=== PATIENT | male | born 1945 | race Caucasian/White ===

== ENCOUNTER 2021-08-31 08:20 | Inpatient (IN) | payer MEDICARE, SELFPAY ==
[2021-08-31] VITALS (32 sets, daily range): BP systolic 102–134; BP diastolic 55–82; PULSE 63–90; RESP 12–20; TEMP 36.4–36.8; O2SAT 96–100; BMI 25.3
--- NOTE | ~2021-08-31 | US_ITS ---
US right upper quadrant DATE: 08/31/2021 08:59 INDICATION: Abdominal pain for 2 to 3 weeks, worse over the past 4-5 days TECHNIQUE: Real-time imaging of liver, pancreas, gallbladder areas COMPARISON: None FINDINGS: The pancreas is largely obscured by bowel gas. No hepatic space-occupying mass lesion is evident. Normal hepatopedal portal venous flow direction. The gallbladder is not visualized, presumably due to cholecystectomy. The common bile duct measures 6 .6 mm, within normal limits for 76-year-old patient presumably postcholecystectomy. IMPRESSION: Probable cholecystectomy Normal appearing liver The pancreas is secured by bowel gas Reviewed, dictated and finalized at [facility]. Reviewed, dictated and finalized at location [facility]. ICAL ALLERGIST
--- NOTE | ~2021-08-31 | MR_ITS ---
EXAMINATION: MR MRCP wo/w con/w 3D wo ind DATE: 08/31/2021 17:56 INDICATION: Right upper quadrant abdominal pain. TECHNIQUE: Magnetic resonance imaging (MRI) of the abdomen was performed without and with 16 mL Multi ramakrishna intravenous contrast. Sequences included coronal T2-weighted SS-FSE, coronal T2-weighted FS SS- FSE, coronal T2-weighted FS FIESTA, axial T2-weighted FS FIESTA, axial T2-weighted FIESTA, sagittal T 2-weighted SS-FSE, axial T1-weighted dual-echo FSPGR, axial T2-weighted SS-FSE, axial T1-weighted LAV A, axial T2-weighted STIR FSE. Thick-slab T2-weighted FRFSE-XL images were obtained for magnetic reso nance cholangiopancreatography (MRCP). Rotating maximum intensity projection 3-D reconstructions of t he volumetric data were created by the technologist. Postcontrast sequences included a time course of axial T1-weighted LAVA. COMPARISON: CT dated 08/31/2021 FINDINGS: ABDOMEN MRI: Again seen are masses in the posterior left lower lobe which are more clearly visualized on the prior CT and concerning for metastatic disease. Heart size is normal. No pericardial or pleural effusion. 10 mm homogeneously arterially enhancing lesion in the left hepatic lobe with persistent enhancement isointense to the aorta persisting on the five-minute images consistent with a flash filling hemangio ma. No other hepatic lesions identified. Gallbladder is not visualized and likely surgically absent. Mild splenomegaly measuring 14.2 cm craniocaudally. Pancreas, bilateral adrenal glands and kidneys ar e normal. Visualized portions of the bowels are unremarkable. No pathologically enlarged abdominal ly mphadenopathy. Mild lumbar dextrocurvature with severe lower lumbar spondylosis. Normal bone marrow s ignal throughout with no pathologic marrow replacing process. ABDOMEN MRCP: Mild intrahepatic biliary ductal dilation. There is more prominent dilation of the common bile duct m easuring up to 16 mm in diameter proximally tapering to 10 mm at the distal duct where there is a 7 x 6 mm low signal intensity gallstones. The main pancreatic duct is normal. IMPRESSION: 1. Choledocholithiasis with 7 x 6 mm gallstone at the distal aspect of the common bile duct and mild intrahepatic and moderate extra hepatic biliary ductal dilation. 2. Pulmonary masses in the left lower lobe concerning for metastatic disease. See separate chest CT r eport for further detail. Reviewed, dictated and finalized at location [facility]. MOMETER TUNER IMPRESSION: 1. Choledocholithiasis with 7 x 6 mm gallstone at the distal aspect of the comm on bile duct and mild intrahepatic and moderate extra hepatic biliary ductal di lation. 2. Pulmonary masses in the left lower lobe concerning for metastatic disease. S ee separate chest CT report for further detail.
--- NOTE | ~2021-08-31 | XR_ITS ---
EXAMINATION: XR ERCP DATE: 09/03/2021 14:41 INDICATION: Choledocholithiasis. TECHNIQUE: 10 spot fluoroscopic images of the right upper quadrant were obtained during endoscopic re trograde cholangiopancreatography (ERCP). Fluoroscopy exposure time was 191 seconds. COMPARISON: MRCP 08/31/2021 FINDINGS: The endoscope is in the second portion of the duodenum. There is contrast opacification of the biliary tree. There is intrahepatic and extrahepatic biliary duct dilatation. No visible choledoc holithiasis. IMPRESSION: 1. Intrahepatic and extrahepatic bile duct dilatation status post cholecystectomy. Please refer to e ERCP procedure note for additional details. Reviewed, dictated and finalized at location [facility]. CTOR BANKING IMPRESSION: 1. Intrahepatic and extrahepatic bile duct dilatation status post cholecystecto my. Please refer to the ERCP procedure note for additional details.
--- NOTE | ~2021-08-31 | CT_ITS ---
EXAMINATION: CT diagnostic chest wo con EXAM DATE: 08/31/2021 11:44 INDICATION: Lung masses. Abnormal abdomen pelvis CT. TECHNIQUE: Spiral CT of the chest without contrast. Axial, coronal and sagittal images of the chest were reviewed. Coronal maximum intensity pixel images of chest reviewed. The dose-length product ( DLP) for this examination was 198.58 mGy-cm. The exposure was tailored according to patient size (au to mA exposure control), and iterative reconstruction (ASIR) was used as additional dose reduction te chnique. Correlation is made to CT abdomen pelvis earlier same date. FINDINGS: 7 nodules identified at the lung bases as described, abdomen and pelvis CT largest in the left lower lobe measuring up to 2.4 cm. There are 5 other pulmonary nodules identified in the mid and upper lung zones which are not imaged on those exams, largest in the right upper lobe just above the minor fissure measuring 1 cm. There are scattered calcified lung granulomas. There is mild emphysema . No endobronchial nodules identified. Fluid density circumscribed region in the anterior mediastinum probably pericardial cyst. There are no pleural or pericardial effusions. Tracheobronchial tree i s patent. There is no mediastinal, hilar or axillary lymphadenopathy. There is no pneumothorax. Heart normal in size. There is moderate coronary arterial calcification, arterial sclerosis. Uppe r abdomen is unremarkable. There is mild to moderate thoracic spondylosis without osteoblastic or o steolytic lesions identified. IMPRESSION: 1. Approximately 12 noncalcified pulmonary nodules identified up to 2.4 cm, differential diagnosis i ncluding metastatic disease, infectious or postinfectious residua, cryptogenic organizing pneumonia, probably not septic emboli. Clinical correlation, consider PET/CT, one month follow-up CT scan. Large r left lower lobe nodule could be biopsied. 2. Scattered punctate lung granulomata, postinfectious residua. 3. Mild emphysema. Reviewed, dictated and finalized at location B. MOLD ENGRAVER IMPRESSION: 1. Approximately 12 noncalcified pulmonary nodules identified up to 2.4 cm, di fferential diagnosis including metastatic disease, infectious or postinfectious residua, cryptogenic organizing pneumonia, probably not septic emboli. Clinica l correlation, consider PET/CT, one month follow-up CT scan. Larger left lower lobe nodule could be biopsied. 2. Scattered punctate lung granulomata, postinfectious residua. 3. Mild emphysema.
--- NOTE | ~2021-08-31 | CT_ITS ---
EXAMINATION: CT abdomen pelvis w con EXAM DATE: 08/31/2021 10:08 INDICATION: RUQ pain TECHNIQUE: Spiral CT of the abdomen and pelvis was performed following intravenous injection of 100 m L Omnipaque 350. Axial, coronal and sagittal images of the abdomen and pelvis were reviewed. The do se-length product (DLP) for this examination was 464.27 mGy-cm. The exposure was tailored according to patient size (auto mA exposure control), and iterative reconstruction (ASIR) was used as additiona l dose reduction technique. There is no prior study for comparison. FINDINGS: There are 4 nodules identified in the left lower lobe, 2 in the right middle lobe and one i n the lingula, largest in the left lower lobe measuring 2.4 x 1.9 cm. There is an 8 mm hyperenhancin g lesion in the left liver lobe lateral segment, could be flash filling hemangioma but hypervascular metastasis not excludable. Spleen, pancreas, adrenal glands are unremarkable. Patient is status post cholecystectomy. There is moderate biliary dilation, common bile duct measuring 2 cm in diameter, mo derate intrahepatic biliary duct dilation. These could be from cholecystectomy, but if there is eleva licha bilirubin obstructing ampullary mass (ampulla of Vater) not be excludable. No pancreatic head mas s or common bile duct stone is specifically identified. Portal and splenic veins are patent. Kidneys enhance symmetrically. There is no hydronephrosis. P atient has likely had prostatectomy. The bladder is unremarkable. There is no retroperitoneal or p elvic lymphadenopathy. Small inguinal fat-containing hernias. There are no findings to suggest appendicitis. The stomach and small bowel are unremarkable. There is expected amount of colonic stool. No free intraperitoneal gas. There are no osteoblastic or os teolytic lesions identified. IMPRESSION: 1. Basilar pulmonary nodules up to 2.4 cm, suspicious for metastatic disease. Less likely considerat ions include multifocal pneumonia, septic emboli. Clinical correlation, consider chest CT. 2. Biliary dilation could be from cholecystectomy but if elevated bilirubin is present consider ERCP . 3. Subcentimeter left liver lobe lesion likely flash filling hemangioma. Less likely hypervascular m etastasis. 4. Small inguinal hernias. 5. No acute intra-abdominal findings. Reviewed, dictated and finalized at location [facility]. MACHINE KEY PERSON IMPRESSION: 1. Basilar pulmonary nodules up to 2.4 cm, suspicious for metastatic disease. Less likely considerations include multifocal pneumonia, septic emboli. Clinica l correlation, consider chest CT. 2. Biliary dilation could be from cholecystectomy but if elevated bilirubin is present consider ERCP. 3. Subcentimeter left liver lobe lesion likely flash filling hemangioma. Less likely hypervascular metastasis. 4. Small inguinal hernias. 5. No acute intra-abdominal findings.
[2021-08-31 08:44] LABS: Basophils Absolute Auto 0.1 K/mm3 (0.0-0.1); Basophils Percent Auto 0.3 % (0.2-1.2); Eosinophils Percent Auto 0.1 % (0-4.4); Hematocrit 37.2 % (42.0-52.0); Hemoglobin 12.5 g/dL (14.0-18.0); Immature Granulocyte Percent A 0.5 % (0-0.5); Lymphocytes Absolute Auto 0.73 K/mm3 (0.9-3.2); Lymphocytes Percent Auto 3.8 % (18.3-44.2); Mean Corpuscular HGB Conc 33.6 g/dl (32-36); Mean Corpuscular Hemoglobin 22.4 pg (26-34); Mean Corpuscular Volume 66.5 fl (80-100); Mean Platelet Volume 9.7 fl (7.4-10.4); Monocytes Absolute Auto 1.1 K/mm3 (0.1-0.6); Monocytes Percent Auto 5.6 % (2.6-8.5); Neutrophils Absolute Auto 17.3 K/mm3 (1.3-6.7); Neutrophils Percent Auto 89.7 % (45.5-73.1); Platelet Count Result 287 k/mm3 (150-375); Red Blood Count 5.59 M/mm3 (4.6-6.20); White Blood Count 19.3 K/mm3 (4.5-10.0)
[2021-08-31 08:59] LABS: Alanine Aminotransferase 391 U/L (4-50); Albumin Level 4.1 g/dL (3.5-5.1); Alkaline Phosphatase 498 U/L (38-126); Anion Gap 7 mmol/L (8-16); Aspartate Amino Transferase 274 U/L (17-59); Bilirubin,Total 2.4 mg/dL (0.2-1.3); Blood Urea Nitrogen 15 mg/dL (9-20); Calcium 9.3 mg/dL (8.4-10.2); Carbon Dioxide 26 mmol/L (22-30); Chloride 98 mmol/L (98-107); Estimated CRCL calculation 52 ml/min; Estimated Glomerular Filt Rate > 60; Glucose 137 mg/dL (65-110); Lipase 76 U/L (23-300); Potassium 4.3 mmol/L (3.4-5.0); Sodium 131 mmol/L (137-145)
[2021-08-31] MEDS: SODIUM CHLORIDE 0.9% IV 1,000 ML 999 ML IV CONT (09:03)
--- NOTE | 2021-08-31 10:40 | ED.GENADULT ---
HPI - General Adult General Chief complaint: Abdominal Pain Stated complaint: abd pain, dark urine Time Seen by Provider: 08/31/21 08:26 History of Present Illness HPI narrative: Patient is a 76-year-old male who presents the ER with abdominal pain. Ongoing over the last 5 days. Saw his PCP who ordered outpatient lab work. Patient had abnormal bilirubin and liver function test. He was referred here to get an ultrasound. Reports that he had a fever of 101 ?F. Cannot identify any aggravating or alleviating factors related to the pain. Reports some mild jaundice as well. He has had some dark urine. No dysuria or urinary frequency urgency. Has not been wanting to eat. Related Data Home Medications Medication Instructions Recorded Confirmed citalopram 40 mg PO DAILY 08/31/21 08/31/21 metoprolol succinate 100 mg PO DAILY 08/31/21 08/31/21 olmesartan-hydrochlorothiazide 1 tablet PO DAILY 08/31/21 08/31/21 omeprazole 20 mg PO DAILY 08/31/21 08/31/21 trazodone 50 mg PO HS PRN 08/31/21 08/31/21 Allergies Allergy/AdvReac Type Severity Reaction Status Date / Time No Known Allergies Allergy Mild Verified 08/31/21 09:42 Review of Systems Review of Systems: All systems reviewed & are unremarkable except as noted in HPI and below Constitutional: Constitutional: Denies chills, Reports fever(s) and Reports weakness Comments: Anorexia ENT: Denies nasal congestion and Denies sore throat Cardiovascular: Cardiovascular: Denies chest pain, Denies rapid heart rate and Denies radiating jaw, neck or arm pain Respiratory: Respiratory: Denies cough, Denies dyspnea and Denies wheezing Gastrointestinal: Gastrointestinal: Reports abdominal pain, Denies diarrhea, Reports nausea and Denies vomiting Musculoskeletal: Musculoskeletal: Denies back pain and Denies muscle cramps Neurologic: Denies syncope, Denies focal weakness and Denies numbness [facility] Past Medical History Medical History (Updated 08/31/21 @ 18:32 by Marc Meza MD) Dilated bile duct Elevated liver enzymes Leukocytosis Nausea and vomiting in adult Pulmonary nodule RUQ pain SIRS (systemic inflammatory response syndrome) Family History Family History (Updated 08/31/21 @ 18:02 by Domi Pepper RN) Other Unknown family medical history Social History Social History Smoking status: Never smoker Alcohol intake: never Substance use: never Substance use type: does not use Spiritual care concerns: No Exam Narrative: GENERAL: Well-appearing, well-nourished, and in no acute distress. HEAD: Normocephalic, atraumatic. EYES: PERRL and EOMI. mild scleral icterus. CHEST: Clear to auscultation. No respiratory distress. HEART: Regular rate and rhythm. Normal peripheral pulses. ABDOMEN: Soft, mild epigastric and right upper quadrant discomfort without guarding, nondistended, normal active bowel sounds. EXTREMITIES: Normal range of motion. No edema. SKIN: Warm, dry, no rash. Bronze skin. NEURO: Alert and oriented x3. PSYCH: Normal mood and affect. Course Course Emergency Course: Discussed case with GI as well as hospital service. Dr. Watson with GI would like the patient have an MRCP for further evaluation. Zosyn ordered for antibiotic coverage blood cultures obtained. Admit to hospitalist service. Patient made aware of abnormal findings and possibility of metastatic lesions in the chest. Vital Signs Vital signs: Vital Signs Temperature 98.2 F 08/31/21 08:26 Pulse Rate 90 08/31/21 08:26 Respiratory Rate 13 08/31/21 08:26 Blood Pressure 123/68 08/31/21 08:26 Pulse Oximetry 100 08/31/21 08:26 Temperature 98 F 08/31/21 08:32 Pulse Rate 66 08/31/21 13:38 Respiratory Rate 16 08/31/21 13:38 Blood Pressure 102/64 08/31/21 13:30 Pulse Oximetry 100 08/31/21 13:38 Medical Decision Making Vital Signs Vital Signs: Vital Signs Temperature 98.2 F 08/31/21 08:26 Pulse Rate 90 08/31/21 08
--- NOTE | 2021-08-31 11:08 | PC.NURSE ---
Pt was informed that he can not eat or drink at this time, he will have another test
--- NOTE | 2021-08-31 12:00 | PC.NURSE ---
Pt resting quietly informed pt he will be admitted, pt denies pain at this time
--- NOTE | 2021-08-31 12:50 | ADMGEN ---
This patient, Suman Neumann, was admitted to [facility] Surg Room 317-02 at 1250. Patient/family oriented to hospital policies and general routines including ID bracelet, bed and alarms, visiting hours, pain management, procedures, bathroom and other care routines, personal items, smoking policy, room service/diet, and visiting hours. Information on how to activate the Rapid Response Team has been discussed. Patient/Family are encouraged to report perceived risks to care and to ask questions if they do not understand what they are told or what they should do.
--- NOTE | 2021-08-31 13:15 | PC.NURSE ---
attempted to call report to 3med/surg, RN stated charge nurse will call back room has not been assigned yet
[2021-08-31] MEDS: SODIUM CHLORIDE 0.9% IV 1,000 ML 125 ML IV CONT (16:13)
--- NOTE | 2021-08-31 16:55 | WPDGICN ---
Assessment and Plan Assessment and plan (1) Elevated liver enzymes: Code(s): R74.8 - Abnormal levels of other serum enzymes Status: Acute Assessment and Plan: here with fever, upper abdominal pain and elevated liver enzymes ct scan noted dilated bile duct, will get MRCP to assess biliary system- ddx includes stone, stricture, mass (also noted lung nodules with possibility of mets- will need further work up) started on antibiotics because possible cholangitis, awaiting on mrcp and blood cultures will trend liver enzymes, check hepatitis panel no etoh use (2) SIRS (systemic inflammatory response syndrome): Code(s): R65.10 - Systemic inflammatory response syndrome (SIRS) of non-infectious origin without acute organ dysfunction Status: Acute Assessment and Plan: on antibiotics (3) Leukocytosis: Code(s): D72.829 - Elevated white blood cell count, unspecified Status: Acute (4) RUQ pain: Code(s): R10.11 - Right upper quadrant pain Status: Acute Assessment and Plan: similar to previous GB pain (5) Dilated bile duct: Code(s): K83.8 - Other specified diseases of biliary tract Status: Acute Assessment and Plan: mrcp, based on findings may need ercp (6) Nausea and vomiting in adult: Code(s): R11.2 - Nausea with vomiting, unspecified Status: Acute (7) Pulmonary nodule: Code(s): R91.1 - Solitary pulmonary nodule Status: Acute Assessment and Plan: work up by primary he smoked briefly and quit many years ago GI Consult Note Consult date/time: 08/31/21 16:55 Reason for consult: elevated liver enzymes, abnormal bile duct and ruq pain HPI: Suman Neumann is a 76 year old male with history of cholecystectomy more than 10 years ago who came here with progressive abdominal discomfort for almost 2-3 weeks mostly in upper abdomen with radiation to his back but last week worsening pain in fact he went to see his doctor because similar when he used to have GB attack and he ordered MRI as outpatient. Also he started with nausea and vomiting and noted dark urine last few days. Yesterday had chills and fever up to 101 F. He came here because abdominal pain. Blood work showed elevated liver enzymes with transaminases 200-300's, bili 2.4, wbc 19k. CT scan reviewed and showed dilated bile duct, basilar pulmonary nodules up to 2.4 cm, suspicious for metastatic disease. Less likely considerations include multifocal pneumonia, septic emboli. Also possible liver hemangioma. He says that pain now is gone after medical treatment and already feeling better. Denies alcohol abuse, no previous pancreatitis or liver disease, no hepatitis. Started on antibiotics and blood culture pending. Review of Systems Constitutional: Constitutional: Reports chills Eyes: Eyes: Denies blurry vision ENT: Reports Normal hearing present Cardiovascular: Cardiovascular: Denies chest pain Respiratory: Respiratory: Denies dyspnea Gastrointestinal: Gastrointestinal: Reports abdominal pain, Reports nausea and Reports vomiting Genitourinary: Comments: dark urine Musculoskeletal: Musculoskeletal: Denies arthralgias Integumentary/Breasts: Skin/Breast: Denies dry skin Neurologic: Denies headache(s) Psychiatric: Psychiatric: Reports no additional psychiatric complaints [facility] Past Medical History Medical History (Updated 08/31/21 @ 17:02 by Andriy Ashton MD) Dilated bile duct Elevated liver enzymes Leukocytosis Nausea and vomiting in adult Pulmonary nodule RUQ pain SIRS (systemic inflammatory response syndrome) Social History Social History Smoking status: Never smoker Alcohol intake: never Substance use: never Substance use type: does not use Spiritual care concerns: No Meds Home Medications and Allergies Allergies Allergy/AdvReac Type Severity Reaction Status Date / Time No Known Allergies Allergy Mild Verified 1
--- NOTE | 2021-08-31 21:09 | PM.IMHP ---
H&P: HPI History of Present Illness Date/Time: 08/31/21 21:09 this is a 76-year-old male patient who has a history of hypertension. He also had a history of having prostate cancer with a prostatectomy in the past. The patient tells me that he has been having some right upper quadrant discomfort for at least a week now. He said he only vomit 1 time Within the last 3 weeks. The patient stated that he did take some Tylenol but was concerned that this would not be healthy for him so he stopped taking the Tylenol. The patient stated he would have increased pain whenever he ate. So he would decrease his intake so he would not have as much pain. If he did need as much he would have his much pain. The patient has had history of cholecystectomy in the past. The patient does also take omeprazole at home. Patient also had a fever of 101. The patient stated that he has lost 8 lb in the last 3 weeks. The patient has no previous history of any lung nodules on any previous chest x-rays. CT of the abdomen was read as 1. Basilar pulmonary nodules up to 2.4 cm, suspicious for metastatic disease. Less likely considerations include multifocal pneumonia, septic emboli. Clinical correlation, consider chest CT. 2. Biliary dilation could be from cholecystectomy but if elevated bilirubin is present consider ERCP. 3. Subcentimeter left liver lobe lesion likely flash filling hemangioma. Less likely hypervascular metastasis. 4. Small inguinal hernias. 1. Approximately 12 noncalcified pulmonary nodules identified up to 2.4 cm, differential diagnosis including metastatic disease, infectious or postinfectious residua, cryptogenic organizing pneumonia, probably not septic emboli. Clinical correlation, consider PET/CT, one month follow-up CT scan. Larger left lower lobe nodule could be biopsied. 2. Scattered punctate lung granulomata, postinfectious residua. 3. Mild emphysema GI has been consulted. An MRCP has been ordered. His MRCP was read as the following. Choledocholithiasis with 7 x 6 mm gallstone at the distal aspect of the common bile duct and mild intrahepatic and moderate extra hepatic biliary ductal dilation. 2. Pulmonary masses in the left lower lobe concerning for metastatic disease. See separate chest CT report for further detail. I discussed these results with the patient and he stated that he would like to discuss the results with his daughter before a made any decisions. His white count is 19.3. The patient was started on IV fluids and Zosyn. All the liver enzymes are elevated. The patient appears to be jaundice. However the patient stated that this is his normal color. The patient is being admitted to observation status on 08/31/2021. Chief Complaint: abd pain Review of Systems Review of Systems: All systems reviewed & are unremarkable except as noted in HPI and below Constitutional: Constitutional: Reports as per HPI and Reports no additional constitutional complaints Eyes: Eyes: Reports as per HPI and Reports no additional eye complaints ENT: Reports system reviewed and no additional complaints, except as documented and Reports Normal hearing present Cardiovascular: Cardiovascular: Reports no additional cardiovascular complaints Respiratory: Respiratory: Reports no additional respiratory complaints and Reports no additional respiratory complaints Gastrointestinal: Gastrointestinal: Reports as per HPI and Reports no additional gastrointestinal complaints Musculoskeletal: Musculoskeletal: Reports no additional musculoskeletal complaints Integumentary/Breasts: Skin/Breast: Reports system reviewed and no additional complaints, except as docu and Reports as per HPI Neurologic: Reports system reviewed and no additional complaints, except as documented, Reports as per HPI and Reports Normal hearing present Psychiatric: Psychiatric: Reports no additional psychiatric complaints and Reports as per HPI Endocrine: Endocrine: Reports no additional en
[2021-08-31] MEDS: traZODone HCL 50 MG TABLET PO (23:05)
[2021-09-01] VITALS (7 sets, daily range): BP systolic 103–145; BP diastolic 50–71; PULSE 56–72; RESP 18–20; TEMP 36.3–36.9; O2SAT 96–100
[2021-09-01] MEDS: SODIUM CHLORIDE 0.9% IV 1,000 ML 125 ML IV CONT ×2 (03:08→14:18)
[2021-09-01 08:09] LABS: Alanine Aminotransferase 259 U/L (4-50); Albumin Level 3.3 g/dL (3.5-5.1); Alkaline Phosphatase 357 U/L (38-126); Anion Gap 6 mmol/L (8-16); Aspartate Amino Transferase 142 U/L (17-59); Blood Urea Nitrogen 15 mg/dL (9-20); CRP 8.2 mg/dL (<1.0); Calcium 8.5 mg/dL (8.4-10.2); Carbon Dioxide 24 mmol/L (22-30); Chloride 103 mmol/L (98-107); Creatine Kinase 21 U/L (55-170); Estimated CRCL calculation 71 ml/min; Estimated Glomerular Filt Rate > 60; Glucose 108 mg/dL (65-110); Lactate Dehydrogenase 269 U/L (313-618); Lipase 98 U/L (23-300); Magnesium 1.9 mg/dL (1.6-2.3); Potassium 3.6 mmol/L (3.4-5.0); Sodium 133 mmol/L (137-145)
[2021-09-01 08:10] LABS: Lactic Acid Reflex 0.8 mmol/L (0.7-2.1)
[2021-09-01 08:21] LABS: Hematocrit 29.3 % (42.0-52.0); Hemoglobin 9.9 g/dL (14.0-18.0); Mean Corpuscular HGB Conc 33.8 g/dl (32-36); Mean Corpuscular Hemoglobin 22.3 pg (26-34); Mean Corpuscular Volume 66.1 fl (80-100); Mean Platelet Volume 10.9 fl (7.4-10.4); Platelet Count Result 251 k/mm3 (150-375); Red Blood Count 4.43 M/mm3 (4.6-6.20); Red Cell Distribution Width 15.2 % (11.5-14.5); White Blood Count 7.4 K/mm3 (4.5-10.0)
[2021-09-01] MEDS: METOPROLOL SUCCINATE EXT REL 100 MG TABCR PO (09:00)
[2021-09-01] MEDS: PANTOPRAZOLE SODIUM IV 40 MG VIAL IV PUSH ×2 (09:01→21:02)
[2021-09-01] MEDS: CITALOPRAM HYDROBROMIDE 20 MG TABLET 40 MG PO (09:01)
[2021-09-01 09:12] LABS: Hepatitis B Surface Antigen Negative (Negative)
[2021-09-01 09:18] LABS: HAV RESULT Negative (Negative); Hepatitis B Core IgM Result Negative (Negative)
[2021-09-01 09:30] LABS: Hepatitis C Virus Antibody Negative (Negative)
--- NOTE | 2021-09-01 10:03 | WPDGIPROGNO ---
Progress Note: A&P Assessment and Plan (1) Choledocholithiasis: Code(s): K80.50 - Calculus of bile duct without cholangitis or cholecystitis without obstruction Status: Acute Assessment and Plan: Patient presented with fever and elevated LFTs. History of cholecystectomy some years ago. MRCP performed yesterday confirms common bile duct gallstones. This likely accounts for inflammatory response, possible cholangitis. Symptoms are improving with IV antibiotics. White count has decreased. Liver tests down slightly. Plan for ERCP on Friday. Under direction of Dr. Watson. Will continue antibiotics until that is accomplished. Anticoagulation should be held. (2) SIRS (systemic inflammatory response syndrome): Code(s): R65.10 - Systemic inflammatory response syndrome (SIRS) of non-infectious origin without acute organ dysfunction Status: Acute (3) Lung mass: Code(s): R91.8 - Other nonspecific abnormal finding of lung field Status: Acute Assessment and Plan: Patient has lung masses suspicious for metastatic disease. Likely will need biopsy. To exclude metastases. Subjective Date/time seen: 09/01/21 10:03 Patient alert comfortable this morning. States abdominal pain has improved. Tolerating diet. Review of Systems Review of Systems: All systems reviewed & are unremarkable except as noted in HPI and below Exam Narrative: Physical exam patient is alert comfortable at rest. Currently afebrile. HEENT exam reveals no icterus. Lungs are clear. Heart without murmur. Abdomen soft and nontender. No organomegaly evident. Objective Data Vital Signs Vital Signs: Vital Signs - 24 hr 08/31/21 10:14 08/31/21 10:15 08/31/21 10:30 Temperature Pulse Rate 81 81 67 Respiratory Rate 16 13 16 Blood Pressure Pulse Oximetry 100 100 99 08/31/21 10:45 08/31/21 10:59 08/31/21 11:00 Temperature Pulse Rate 76 77 77 Respiratory Rate 13 17 12 Blood Pressure 124/69 Pulse Oximetry 100 100 100 08/31/21 11:02 08/31/21 11:03 08/31/21 11:15 Temperature Pulse Rate 70 70 72 Respiratory Rate 12 16 16 Blood Pressure 120/72 Pulse Oximetry 100 100 100 08/31/21 11:23 08/31/21 11:30 08/31/21 11:32 Temperature Pulse Rate 72 66 69 Respiratory Rate 13 15 17 Blood Pressure 111/62 107/65 Pulse Oximetry 100 99 99 08/31/21 11:49 08/31/21 12:02 08/31/21 12:15 Temperature Pulse Rate 68 67 66 Respiratory Rate 13 14 17 Blood Pressure Pulse Oximetry 100 99 98 08/31/21 12:39 08/31/21 12:43 08/31/21 12:45 Temperature Pulse Rate 68 67 66 Respiratory Rate 14 14 14 Blood Pressure 104/68 103/63 Pulse Oximetry 100 99 99 08/31/21 12:46 08/31/21 13:09 08/31/21 13:15 Temperature Pulse Rate 68 63 64 Respiratory Rate 14 15 15 Blood Pressure Pulse Oximetry 99 98 96 08/31/21 13:30 08/31/21 13:38 08/31/21 14:00 Temperature 98.0 F Pulse Rate 64 66 67 Respiratory Rate 15 16 20 Blood Pressure 102/64 105/55 L Pulse Oximetry 96 100 100 08/31/21 18:31 08/31/21 20:00 08/31/21 23:54 Temperature 98.0 F 97.6 F Pulse Rate 67 80 Respiratory Rate 16 18 Blood Pressure 123/60 134/82 Pulse Oximetry 99 97 96 09/01/21 00:00 09/01/21 04:00 09/01/21 08:00 Temperature 98.0 F 97.3 F L 97.3 F L Pulse Rate 56 L 58 L 63 Respiratory Rate 18 18 18 Blood Pressure 103/58 L 110/62 124/63 Pulse Oximetry 97 99 96 09/01/21 09:00 Temperature Pulse Rate 64 Respiratory Rate Blood Pressure Pulse Oximetry Intake/Output Intake/Output: Intake & Output 08/29/21 08/30/21 08/31/21 09/01/21 23:59 23:59 23:59 23:59 Intake Total 1150 2350 Output Total 300 Balance 1150 2050 Meds/Results Medications: Active Medications Generic Name Dose Route Start Last Admin Trade Name Josh PRN Reason Stop Dose Admin Citalopram Hydrobromide 40 mg 09/01/21 09:00 09/01/21 09:01 Citalopram Hydrobromide 20 Mg Tablet PO 40 mg DAILY
--- NOTE | 2021-09-01 13:25 | PM.IMPN ---
Progress Note: A&P Assessment and Plan (1) Choledocholithiasis: Code(s): K80.50 - Calculus of bile duct without cholangitis or cholecystitis without obstruction Status: Acute Assessment and Plan: GI has been consulted. The patient did have an MRCP. continue to monitor LFTS. ERCP ordered for FRIDAY. (2) Hypertension: Code(s): I10 - Essential (primary) hypertension Status: Chronic Assessment and Plan: Continue with metoprolol and home medications. (3) Pulmonary nodule: Code(s): R91.1 - Solitary pulmonary nodule Status: Acute Assessment and Plan: I gave the patient a choice of repeating a CT in 3 months or getting an outpatient PET scan or having the largest nodule biopsied while he is here. We need to address this after ERCP. (4) Dilated bile duct: Code(s): K83.8 - Other specified diseases of biliary tract Status: Acute Assessment and Plan: GI has consulted the patient. (5) Elevated liver enzymes: Code(s): R74.8 - Abnormal levels of other serum enzymes Status: Acute Assessment and Plan: GI has been consulted. Could be related to the choledocholithiasis. (6) SIRS (systemic inflammatory response syndrome): Code(s): R65.10 - Systemic inflammatory response syndrome (SIRS) of non-infectious origin without acute organ dysfunction Status: Acute Assessment and Plan: Blood cultures is awaiting. The patient was started on Zosyn. Subjective Date/time seen: 09/01/21 13:25 Interval history: 76-year-old male patient who has a history of hypertension. He also had a history of having prostate cancer with a prostatectomy in the past. The patient tells me that he has been having some right upper quadrant discomfort for at least a week now. MRCP was read as the following. Choledocholithiasis with 7 x 6 mm gallstone at the distal aspect of the common bile duct and mild intrahepatic and moderate extra hepatic biliary ductal dilation. 2. Pulmonary masses in the left lower lobe concerning for metastatic disease. Pt is due to have ERCP on Friday. Review of Systems Review of Systems: All systems reviewed & are unremarkable except as noted in HPI and below Exam Const: General: other (Pt looks jaundiced ) Orientation/consciousness: oriented to person HENMT: Head: normal to inspection Resp: Effort & Inspection: no respiratory distress Auscultation: no rhonchi and no wheezes Cardio: Rate: regular rate Rhythm: regular rhythm GI: Inspection: normal to inspection GI Palp: No abdominal tenderness, No Guarding due to palpation present (GI) and No Hepatomegaly present Auscultation: normal bowel sounds Neuro: General: oriented to person Objective Data Vital Signs Vital Signs: Vital Signs - 24 hr 08/31/21 13:30 08/31/21 13:38 08/31/21 14:00 Temperature 36.7 C Pulse Rate 64 66 67 Respiratory Rate 15 16 20 Blood Pressure 102/64 105/55 L Pulse Oximetry 96 100 100 08/31/21 18:31 08/31/21 20:00 08/31/21 23:54 Temperature 36.7 C 36.4 C Pulse Rate 67 80 Respiratory Rate 16 18 Blood Pressure 123/60 134/82 Pulse Oximetry 99 97 96 09/01/21 00:00 09/01/21 04:00 09/01/21 08:00 Temperature 36.7 C 36.3 C L 36.3 C L Pulse Rate 56 L 58 L 63 Respiratory Rate 18 18 18 Blood Pressure 103/58 L 110/62 124/63 Pulse Oximetry 97 99 96 09/01/21 09:00 Temperature Pulse Rate 64 Respiratory Rate Blood Pressure Pulse Oximetry Intake/Output Intake/Output: Intake & Output 08/29/21 08/30/21 08/31/21 09/01/21 23:59 23:59 23:59 23:59 Intake Total 1150 2350 Output Total 300 Balance 1150 2050 Meds/Results Medications: Active Medications Generic Name Dose Route Start Last Admin Trade Name Constantinq PRN Reason Stop Dose Admin Citalopram Hydrobromide 40 mg 09/01/21 09:00 09/01/21 09:01 Citalopram Hydrobromide 20 Mg Tablet PO 40 mg DAILY COLEEN Administration Piperacillin/Tazob
[2021-09-01] MEDS: traZODone HCL 50 MG TABLET PO (23:55)
[2021-09-02] MEDS: SODIUM CHLORIDE 0.9% IV 1,000 ML 125 ML IV CONT (01:43)
[2021-09-02 05:54] VITALS: BP 155/66; PULSE 51; RESP 18; TEMP 36.3; O2SAT 99
[2021-09-02 06:54] LABS: Hematocrit 28.8 % (42.0-52.0); Hemoglobin 9.5 g/dL (14.0-18.0); Mean Corpuscular Hemoglobin 22.5 pg (26-34); Mean Corpuscular Volume 68.1 fl (80-100); Mean Platelet Volume 10.8 fl (7.4-10.4); Platelet Count Result 246 k/mm3 (150-375); Red Blood Count 4.23 M/mm3 (4.6-6.20); Red Cell Distribution Width 15.5 % (11.5-14.5); White Blood Count 6.2 K/mm3 (4.5-10.0)
[2021-09-02 07:20] LABS: Anion Gap 3 mmol/L (8-16); Blood Urea Nitrogen 9 mg/dL (9-20); Calcium 8.4 mg/dL (8.4-10.2); Carbon Dioxide 26 mmol/L (22-30); Chloride 107 mmol/L (98-107); Estimated CRCL calculation 71 ml/min; Estimated Glomerular Filt Rate > 60; Glucose 93 mg/dL (65-110); Potassium 3.9 mmol/L (3.4-5.0); Sodium 136 mmol/L (137-145)
--- NOTE | 2021-09-02 09:05 | WPDGIPROGNO ---
Progress Note: A&P Assessment and Plan (1) Choledocholithiasis: Code(s): K80.50 - Calculus of bile duct without cholangitis or cholecystitis without obstruction Status: Acute Assessment and Plan: Patient with history of cholecystectomy. However MRCP appears to confirm common bile duct gallstones. Likely these are newly formed over the many years since his cholecystectomy. ERCP and common duct stone extraction anticipated tomorrow by Dr. Watson. Continue antibiotics in the interim. NPO after midnight. (2) Lung mass: Code(s): R91.8 - Other nonspecific abnormal finding of lung field Status: Acute Assessment and Plan: Lung mass is evident on scanning suggestive of metastatic disease. Follow-up lung biopsy and probably pulmonary evaluation anticipated. (3) Anemia: Code(s): D64.9 - Anemia, unspecified Status: Acute Assessment and Plan: Patient with microcytic anemia. Continue monitor conservatively. Suspect this is related to his infection at the time admission. Subjective Date/time seen: 09/02/21 09:05 Patient alert and comfortable this morning. Tolerating diet. No abdominal pain today. Review of Systems Review of Systems: All systems reviewed & are unremarkable except as noted in HPI and below Exam Narrative: Patient alert and comfortable. Vital signs stable. HEENT exam reveals no icterus. Lungs are clear. Heart without murmur. Abdomen is soft nontender with no organomegaly. Objective Data Vital Signs Vital Signs: Vital Signs - 24 hr 09/01/21 14:00 09/01/21 20:00 09/01/21 22:00 Temperature 97.6 F 98.4 F 98.4 F Pulse Rate 56 L 72 72 Respiratory Rate 20 18 18 Blood Pressure 145/71 H 133/50 L 133/50 L Pulse Oximetry 100 99 99 09/02/21 05:54 Temperature 97.3 F L Pulse Rate 51 L Respiratory Rate 18 Blood Pressure 155/66 H Pulse Oximetry 99 Intake/Output Intake/Output: Intake & Output 08/30/21 08/31/21 09/01/21 09/02/21 23:59 23:59 23:59 23:59 Intake Total 1150 6450 800 Output Total 300 Balance 1150 6150 800 Meds/Results Medications: Active Medications Generic Name Dose Route Start Last Admin Trade Name Freq PRN Reason Stop Dose Admin Citalopram Hydrobromide 40 mg 09/01/21 09:00 09/01/21 09:01 Citalopram Hydrobromide 20 Mg Tablet PO 40 mg DAILY COLEEN Administration Piperacillin/Tazobactam/Dextrose 3.375 gm in 50 mls @ 100 mls/hr 08/31/21 18:00 09/02/21 06:56 Zosyn 3.375 Gm/D5w 50ml Pm IVPB 100 mls/hr Q6HR COLEEN Administration Sodium Chloride 1,000 mls @ 75 mls/hr 08/31/21 11:30 09/02/21 08:56 Normal Saline Iv IV CONT 75 mls/hr .[id number] COLEEN Infusion Metoprolol Succinate 100 mg 09/01/21 09:00 09/01/21 09:00 Metoprolol Succinate Ext Rel 100 Mg Tabcr PO 100 mg DAILY COLEEN Administration Morphine Sulfate 4 mg 08/31/21 11:29 Morphine Sulfate (*Crx) 4 Mg/Ml Inj IV PUSH Q2H PRN Pain Rated 7-10 Ondansetron HCl 4 mg 08/31/21 11:29 Ondansetron Inj 4 Mg/2 Ml Vial IV PUSH Q4H PRN Nausea Pantoprazole Sodium 40 mg 09/01/21 09:00 09/01/21 21:02 Pantoprazole Sodium Iv 40 Mg Vial IV PUSH 40 mg Q12HR COLEEN Administration Trazodone HCl 50 mg 08/31/21 21:44 09/01/21 23:55 Trazodone Hcl 50 Mg Tablet PO 50 mg HS PRN Administration Insomnia Radiology Results: ITS Impressions Upper Quadrant Ultrasound 08/31/21 09:02 IMPRESSION: Probable cholecystectomy Normal appearing liver The pancreas is secured by bowel gas Abdomen/Pelvis CT 08/31/21 10:19 IMPRESSION: 1. Basilar pulmonary nodules up to 2.4 cm, suspicious for metastatic disease. Less likely considerations include multifocal pneumonia, septic emboli. Clinical correlation, consider chest CT. 2. Biliary dilation could be from cholecystectomy but if elevated bilirubin is present consider ERCP. 3. Subcentimeter left liver lobe lesion likely flash filling hemangioma. Less likel
[2021-09-02 09:36] VITALS: PULSE 60
[2021-09-02] MEDS: CITALOPRAM HYDROBROMIDE 20 MG TABLET 40 MG PO (09:36)
[2021-09-02] MEDS: METOPROLOL SUCCINATE EXT REL 100 MG TABCR PO (09:36)
[2021-09-02] MEDS: PANTOPRAZOLE SODIUM IV 40 MG VIAL IV PUSH ×2 (09:36→21:49)
[2021-09-02 10:03] LABS: Iron 58 ug/dL (49-181)
[2021-09-02 10:12] LABS: Percent Iron Saturation 27 % (20-50)
[2021-09-02 14:00] VITALS: BP 117/62; PULSE 54; RESP 14; TEMP 36.5; O2SAT 100
--- NOTE | 2021-09-02 14:35 | PM.IMPN ---
Progress Note: A&P Assessment and Plan (1) Choledocholithiasis: Code(s): K80.50 - Calculus of bile duct without cholangitis or cholecystitis without obstruction Status: Acute Assessment and Plan: GI has been consulted. The patient did have an MRCP. continue to monitor LFTS. ERCP ordered for FRIDAY. Pt started on low fat diet, pt to be NPO from [place]. (2) Hypertension: Code(s): I10 - Essential (primary) hypertension Status: Chronic Assessment and Plan: Continue with metoprolol and home medications. (3) Pulmonary nodule: Code(s): R91.1 - Solitary pulmonary nodule Status: Acute Assessment and Plan: I gave the patient a choice of repeating a CT in 3 months or getting an outpatient PET scan or having the largest nodule biopsied while he is here. We need to address this after ERCP. (4) Dilated bile duct: Code(s): K83.8 - Other specified diseases of biliary tract Status: Acute Assessment and Plan: GI has consulted the patient. (5) Elevated liver enzymes: Code(s): R74.8 - Abnormal levels of other serum enzymes Status: Acute Assessment and Plan: GI has been consulted. Could be related to the choledocholithiasis. (6) SIRS (systemic inflammatory response syndrome): Code(s): R65.10 - Systemic inflammatory response syndrome (SIRS) of non-infectious origin without acute organ dysfunction Status: Acute Assessment and Plan: Blood cultures is awaiting. The patient was started on Zosyn. Subjective Date/time seen: 09/02/21 14:35 Interval history: 76-year-old male patient who has a history of hypertension. He also had a history of having prostate cancer with a prostatectomy in the past. The patient tells me that he has been having some right upper quadrant discomfort for at least a week now. MRCP was read as the following. Choledocholithiasis with 7 x 6 mm gallstone at the distal aspect of the common bile duct and mild intrahepatic and moderate extra hepatic biliary ductal dilation. 2. Pulmonary masses in the left lower lobe concerning for metastatic disease. Pt is awaiting ERCP on Friday. Review of Systems Review of Systems: All systems reviewed & are unremarkable except as noted in HPI and below Exam Const: General: other (Pt looks jaundiced ) Orientation/consciousness: oriented to person HENMT: Head: normal to inspection Resp: Effort & Inspection: no respiratory distress Auscultation: no rhonchi and no wheezes Cardio: Rate: regular rate Rhythm: regular rhythm GI: Inspection: normal to inspection GI Palp: No abdominal tenderness, No Guarding due to palpation present (GI) and No Hepatomegaly present Auscultation: normal bowel sounds Neuro: General: oriented to person Objective Data Vital Signs Vital Signs: Vital Signs - 24 hr 09/01/21 20:00 09/01/21 22:00 09/02/21 05:54 Temperature 36.9 C 36.9 C 36.3 C L Pulse Rate 72 72 51 L Respiratory Rate Blood Pressure 133/50 L 133/50 L 155/66 H Pulse Oximetry 99 99 99 09/02/21 09:36 Temperature Pulse Rate 60 Respiratory Rate Blood Pressure Pulse Oximetry Intake/Output Intake/Output: Intake & Output 08/30/21 08/31/21 09/01/21 09/02/21 23:59 23:59 23:59 23:59 Intake Total 1150 6450 1330 Output Total 300 Balance 1150 6150 1330 Meds/Results Medications: Active Medications Generic Name Dose Route Start Last Admin Trade Name Freq PRN Reason Stop Dose Admin Citalopram Hydrobromide 40 mg 09/01/21 09:00 09/02/21 09:36 Citalopram Hydrobromide 20 Mg Tablet PO 40 mg DAILY COLEEN Administration Piperacillin/Tazobactam/Dextrose 3.375 gm in 50 mls @ 100 mls/hr 08/31/21 18:00 09/02/21 12:51 Zosyn 3.375 Gm/D5w 50ml Pm IVPB 100 mls/hr Q6HR COLEEN Administration Sodium Chloride 1,000 mls @ 75 mls/hr 08/31/21 11:30 09/02/21 08:56 Normal Saline Iv IV CONT 75 mls/hr .[id number] COLEEN Infusion Metopr
[2021-09-02] MEDS: SODIUM CHLORIDE 0.9% IV 1,000 ML 75 ML IV CONT (17:12)
[2021-09-02 20:00] VITALS: PULSE 54; RESP 14; O2SAT 100
[2021-09-02] MEDS: traZODone HCL 50 MG TABLET PO (21:49)
[2021-09-02 22:00] VITALS: BP 144/69; PULSE 57; RESP 18; TEMP 36.4; O2SAT 100
[2021-09-03] VITALS (13 sets, daily range): BP systolic 136–170; BP diastolic 74–91; PULSE 55–78; RESP 13–32; TEMP 36.5–36.9; O2SAT 96–100
[2021-09-03] MEDS: ONDANSETRON INJ 4 MG/2 ML VIAL IV PUSH ×2 (07:38→16:04)
[2021-09-03 08:29] LABS: Hematocrit 28.1 % (42.0-52.0); Hemoglobin 9.5 g/dL (14.0-18.0); Mean Corpuscular HGB Conc 33.8 g/dl (32-36); Mean Corpuscular Hemoglobin 22.4 pg (26-34); Mean Corpuscular Volume 66.1 fl (80-100); Mean Platelet Volume 10.2 fl (7.4-10.4); Platelet Count Result 260 k/mm3 (150-375); Red Blood Count 4.25 M/mm3 (4.6-6.20); Red Cell Distribution Width 14.9 % (11.5-14.5); White Blood Count 4.8 K/mm3 (4.5-10.0)
[2021-09-03 08:43] LABS: Alanine Aminotransferase 141 U/L (4-50); Albumin Level 2.9 g/dL (3.5-5.1); Alkaline Phosphatase 321 U/L (38-126); Anion Gap 2 mmol/L (8-16); Aspartate Amino Transferase 69 U/L (17-59); Bilirubin,Total 1.5 mg/dL (0.2-1.3); Blood Urea Nitrogen 8 mg/dL (9-20); Calcium 8.4 mg/dL (8.4-10.2); Carbon Dioxide 27 mmol/L (22-30); Chloride 106 mmol/L (98-107); Estimated CRCL calculation 71 ml/min; Estimated Glomerular Filt Rate > 60; Glucose 96 mg/dL (65-110); Potassium 3.8 mmol/L (3.4-5.0); Sodium 135 mmol/L (137-145)
[2021-09-03] MEDS: METOPROLOL SUCCINATE EXT REL 100 MG TABCR PO (08:47)
[2021-09-03] MEDS: PANTOPRAZOLE SODIUM IV 40 MG VIAL IV PUSH ×2 (08:47→22:29)
[2021-09-03] MEDS: CITALOPRAM HYDROBROMIDE 20 MG TABLET 40 MG PO (08:47)
--- NOTE | 2021-09-03 09:58 | WPDANESEPPF ---
Anes - Initial Pre Proc Eval Procedure: Operation Date: 09/03/21 14:00 Proposed Procedures p Endoscopic Retro Cholangiopancreatogram - Andriy Ashton MD <Juan José Carlson MD - Last Filed: 09/04/21 07:14> Date/Time: 09/03/21 09:58 <Juan José Carlson MD - Last Filed: 09/04/21 07:14> Surgeon: Joseline Prince PA-C <Juan José Carlson MD - Last Filed: 09/04/21 07:14> Pre Op Diagnosis: transminitis/lung nodules/hyper bilirubinemia <Juan José Carlson MD - Last Filed: 09/04/21 07:14> Patient Data Age: 76 Gender: M Height: 1.8 m Weight: 82.4 kg <Juan José Carlson MD - Last Filed: 09/04/21 07:14> Last Vital Signs Temp 36.7 C 09/03/21 06:00 Pulse 55 L 09/03/21 08:47 Resp 18 09/03/21 06:00 BP 166/80 H 09/03/21 06:00 Pulse Ox 98 09/03/21 06:00 <Juan José Carlson MD - Last Filed: 09/04/21 07:14> Allergies Allergy/AdvReac Type Severity Reaction Status Date / Time No Known Allergies Allergy Mild Verified 09/03/21 13:01 <Juan José Carlson MD - Last Filed: 09/04/21 07:14> Home Medications Medication Instructions Recorded Confirmed Type citalopram 40 mg PO DAILY 08/31/21 09/03/21 History metoprolol succinate 100 mg PO DAILY 08/31/21 09/03/21 History olmesartan-hydrochlorothiazide 1 tablet PO DAILY 08/31/21 09/03/21 History omeprazole 20 mg PO DAILY 08/31/21 09/03/21 History trazodone 50 mg PO HS PRN 08/31/21 09/03/21 History <Juan José Carlson MD - Last Filed: 09/04/21 07:14> Laboratory Tests 09/02/21 09/03/21 09/03/21 09:25 08:16 08:16 WBC 4.8 K/mm3 K/mm3 (4.5-10.0) RBC 4.25 M/mm3 L M/mm3 (4.6-6.20) Hgb 9.5 g/dL L g/dL (14.0-18.0) Hct 28.1 % L % (42.0-52.0) MCV 66.1 fl L fl (80-100) MCH 22.4 pg L pg (26-34) MCHC 33.8 g/dl g/dl (32-36) RDW 14.9 % H % (11.5-14.5) Plt Count 260 k/mm3 k/mm3 (150-375) MPV 10.2 fl fl (7.4-10.4) Sodium 135 mmol/L L mmol/L (137-145) Potassium 3.8 mmol/L mmol/L (3.4-5.0) Chloride 106 mmol/L mmol/L (98-107) Carbon Dioxide 27 mmol/L mmol/L (22-30) Anion Gap 2 mmol/L L mmol/L (8-16) BUN 8 mg/dL L mg/dL (9-20) Creatinine 0.80 mg/dL mg/dL (0.7-1.3) Estim Creat Clear Calc 71 ml/min ml/min Estimated GFR > 60 (59 - ) Glucose 96 mg/dL mg/dL (65-110) Calcium 8.4 mg/dL mg/dL (8.4-10.2) Iron 58 ug/dL ug/dL (49-181) TIBC 215 ug/dL L ug/dL (265-497) % Saturation 27 % % (20-50) Total Bilirubin 1.5 mg/dL H mg/dL (0.2-1.3) AST 69 U/L H U/L (17-59) ALT 141 U/L H U/L (4-50) Alkaline Phosphatase 321 U/L H U/L (38-126) Total Protein 5.0 g/dL L g/dL (6.3-8.2) Albumin 2.9 g/dL L g/dL (3.5-5.1) <Juan José Carlson MD - Last Filed: 09/04/21 07:14> Patient hx anesthesia problems: none <Mynor Overton MD - Last Filed: 09/03/21 13:33> Family hx anesthesia problems: none <Mynor Overton MD - Last Filed: 09/03/21 13:33> Results Review: All pre-operative results and documents have been reviewed as part of the pre-operative evaluation. <Juan José Carlson MD - Last Filed: 09/04/21 07:14> [facility] Past Medical History Medical History: Medical History Atrial fibrillation Cataract Choledocholithiasis Dilated bile duct Elevated liver enzymes Family history of cholecystectomy History of prostate cancer status post prostatectomy. Hypertension Leukocytosis Lung mass Nausea and vomiting in adult Prostate CA Pulmonary nodule RUQ pain SIRS (systemic inflammatory response syndrome) <Juan José Carlson MD - Last Filed: 09/04/21 07:14> Surgical History Surgical History: Surgical History (Re
--- NOTE | 2021-09-03 10:39 | PM.IMPN ---
Progress Note: A&P Assessment and Plan (1) Choledocholithiasis: Code(s): K80.50 - Calculus of bile duct without cholangitis or cholecystitis without obstruction Status: Acute Assessment and Plan: Presented with abdominal pain and evidence of biliary dilation on CT scan. MRCP performed 08/31/2021 showed choledocholithiasis with 7 x 6 mm gallstone in the distal aspect of the common bile duct with mild intrahepatic and moderate extrahepatic biliary ductal dilation. Appreciate gastroenterology consultation Planning for ERCP this afternoon Total bilirubin levels slightly decreased, LFTs trending down. Continue to monitor labs closely NPO for ERCP. Advance diet per GI following. Continue gentle IV fluids while NPO, discontinue once tolerating oral intake. Continue IV Zosyn at this time. (2) Hypertension: Code(s): I10 - Essential (primary) hypertension Status: Chronic Assessment and Plan: Blood pressures reviewed and have been generally well controlled. Last BP mildly elevated at 160 6/80. Continue metoprolol succinate 100 mg daily Resume home olmesartan. Hold HCTZ Monitor BP trends (3) Pulmonary nodule: Code(s): R91.1 - Solitary pulmonary nodule Status: Acute Assessment and Plan: First evident on CT abdomen/pelvis, follow-up chest CT performed 08/31/2021 showed approximately 12 noncalcified pulmonary much nodules, measuring up to 2.4 cm. Differentials include metastatic disease, infectious or postinfectious etiology, cryptogenic organizing pneumonia. He does not have signs or symptoms to suggest infectious etiology. Discussed these results with the patient and was offered options biopsy during admission, repeat CT scan, or outpatient PET scan. He would like to follow-up with his primary care provider, Dr. Estrada. Request no further workup during this hospitalization. (4) Elevated liver enzymes: Code(s): R74.8 - Abnormal levels of other serum enzymes Status: Acute Assessment and Plan: Please see above Subjective Date/time seen: 09/03/21 10:39 Interval history: Date of service: 09/03/2021 Suman Neumann is a 76-year-old male with a history of atrial fibrillation, hypertension, and prostate cancer s/p prostatectomy who is seen in follow-up for choledocholithiasis. Planning for ERCP this afternoon. He is doing well at this time. He has no abdominal pain. Denies epigastric pain or right upper quadrant pain. He had a brief episode of nausea this morning which resolved with antiemetics. No episodes of emesis. He had a somewhat loose stool this morning. He has not had anything to eat since yesterday. Prior to him being NPO, he was tolerating his diet. He denies dizziness, lightheadedness, shortness of breath, chest pain, or palpitations. He endorses a cough in the mornings productive of clear sputum, but states this has been going on for many years and only occurs in the mornings upon awakening. He believes he has lost approximately 7 lb in the past 1.5 weeks due to not being able to eat or drink appropriately given his choledocholithiasis. Denies weight loss prior to the past 1.5 weeks. Denies any significant weakness. Review of Systems Review of Systems: All systems reviewed & are unremarkable except as noted in HPI and below Exam Narrative: Mr. Neumann is a well-nourished, well-appearing 76-year-old male who is sitting up in bed. He appears comfortable and is in NARD. Neuro: awake, alert and oriented x4, speech clear, no focal neuro deficits noted HEENMT: normocephalic, atraumatic, EOMI, faint bilateral scleral icterus, moist oral mucosa Neck: supple, no lymphadenopathy Respiratory: clear to auscultation bilaterally, nonlabored breathing Cardio: regular rate, regular rhythm with S1-S2 Abdomen: nondistended, normoactive bowel sounds, soft, nontender to palpation, no rigidity or guarding Extremities: no edema, erythe
[2021-09-03] MEDS: SODIUM CHLORIDE 0.9% IV 1,000 ML 75 ML IV CONT (12:15)
--- NOTE | 2021-09-03 12:50 | PC.NURSE ---
to GI lab per w/c
[2021-09-03] MEDS: LACTATED RINGERS 1,000 ML 150 ML IV CONT (13:05)
[2021-09-03] MEDS: traZODone HCL 50 MG TABLET PO (22:26)
[2021-09-04 05:55] VITALS: BP 137/63; PULSE 42; RESP 18; TEMP 36.2; O2SAT 100
[2021-09-04 06:34] LABS: Hematocrit 28.4 % (42.0-52.0); Hemoglobin 9.5 g/dL (14.0-18.0); Mean Corpuscular HGB Conc 33.5 g/dl (32-36); Mean Corpuscular Volume 65.9 fl (80-100); Mean Platelet Volume 9.8 fl (7.4-10.4); Platelet Count Result 285 k/mm3 (150-375); Red Blood Count 4.31 M/mm3 (4.6-6.20)
[2021-09-04 06:53] LABS: Alanine Aminotransferase 113 U/L (4-50); Alkaline Phosphatase 276 U/L (38-126); Anion Gap 4 mmol/L (8-16); Aspartate Amino Transferase 43 U/L (17-59); Bilirubin,Total 0.8 mg/dL (0.2-1.3); Blood Urea Nitrogen 10 mg/dL (9-20); Calcium 8.6 mg/dL (8.4-10.2); Carbon Dioxide 24 mmol/L (22-30); Chloride 105 mmol/L (98-107); Estimated CRCL calculation 63 ml/min; Estimated Glomerular Filt Rate > 60; Glucose 96 mg/dL (65-110); Sodium 133 mmol/L (137-145)
--- NOTE | 2021-09-04 07:34 | WPDCDIQUERY2 ---
CDI Query Clarification Request -SIRS (of non-infectious origin) documented in H&P and problem list in progress notes until 09/03 then not on problem list 09/03 Please clarify if SIRS was ruled in or ruled out or unable to determine.
[2021-09-04] MEDS: PANTOPRAZOLE SODIUM IV 40 MG VIAL IV PUSH (08:17)
[2021-09-04] MEDS: CITALOPRAM HYDROBROMIDE 20 MG TABLET 40 MG PO (08:17)
[2021-09-04] MEDS: OLMESARTAN MEDOXOMIL 20 MG TABLET 40 MG PO (08:17)
[2021-09-04 08:19] VITALS: PULSE 48
[2021-09-04 09:58] VITALS: PULSE 62
[2021-09-04] MEDS: METOPROLOL SUCCINATE EXT REL 100 MG TABCR PO (09:58)
--- NOTE | 2021-09-04 10:43 | WPDGIPROGNO ---
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 by GI standpoint no more need of antibiotics (2) Elevated liver enzymes: Code(s): R74.8 - Abnormal levels of other serum enzymes Status: Acute Assessment and Plan: trending down (3) Leukocytosis: Code(s): D72.829 - Elevated white blood cell count, unspecified Status: Acute Assessment and Plan: resolved (4) Lung mass: Code(s): R91.8 - Other nonspecific abnormal finding of lung field Status: Acute Assessment and Plan: he is aware about fede nodules and will follow-up with pcp Subjective Date/time seen: 09/04/21 10:43 Interval history: ercp yesterday with sphincterotomy and no filling defects or stones found with normal bile duct otherwise. Today he is doing great, no more pain and tolerating diet. Review of Systems Review of Systems: All systems reviewed & are unremarkable except as noted in HPI and below Exam Const: General: comfortable and no acute distress HENMT: General nose exam: Normal nares present Eyes: General: appearance normal, both eyes and all related structures Neck: Neck: no JVD Resp: Auscultation: clear to auscultation bilaterally Cardio: Rate: regular rate Rhythm: regular rhythm GI: Inspection: non-distended GI Palp: Yes Soft to palpation and No Guarding due to palpation present (GI) Auscultation: normal bowel sounds Skin: General skin exam: normal color Neuro: General: gait normal Speech: normal speech Extrem: General: normal to inspection Psych: Mental Status: mental status grossly normal Objective Data Vital Signs Vital Signs: Vital Signs - 24 hr 09/03/21 13:03 09/03/21 14:46 09/03/21 14:56 Temperature 97.7 F 98.4 F Pulse Rate 55 L 78 76 Respiratory Rate 18 25 H 24 H Blood Pressure 170/79 H 147/79 H 154/82 H Pulse Oximetry 100 100 100 09/03/21 15:06 09/03/21 15:16 09/03/21 15:26 Temperature Pulse Rate 72 78 69 Respiratory Rate 19 32 H 15 Blood Pressure 157/84 H 163/91 H 159/85 H Pulse Oximetry 99 97 96 09/03/21 15:36 09/03/21 15:46 09/03/21 20:00 Temperature Pulse Rate 71 68 63 Respiratory Rate 17 13 18 Blood Pressure 156/84 H 157/84 H Pulse Oximetry 97 96 99 09/03/21 20:14 09/03/21 21:50 09/04/21 05:55 Temperature 98.5 F 97.1 F L Pulse Rate 63 42 L Respiratory Rate 18 18 Blood Pressure 136/74 137/63 Pulse Oximetry 96 99 100 09/04/21 08:19 09/04/21 09:58 Temperature Pulse Rate 48 L 62 Respiratory Rate Blood Pressure Pulse Oximetry Intake/Output Intake/Output: Intake & Output 09/01/21 09/02/21 09/03/21 09/04/21 23:59 23:59 23:59 23:59 Intake Total 6450 2670 1840 1040 Output Total 300 Balance 6150 2670 1840 1040 Meds/Results Medications: Active Medications Generic Name Dose Route Start Last Admin Trade Name Freq PRN Reason Stop Dose Admin Citalopram Hydrobromide 40 mg 09/01/21 09:00 09/04/21 08:17 Citalopram Hydrobromide 20 Mg Tablet PO 40 mg DAILY COLEEN Administration Piperacillin/Tazobactam/Dextrose 3.375 gm in 50 mls @ 100 mls/hr 08/31/21 18:00 09/04/21 06:02 Zosyn 3.375 Gm/D5w 50ml Pm IVPB Infused Q6HR COLEEN Infusion Sodium Chloride 1,000 mls @ 75 mls/hr 08/31/21 11:30 09/03/21 16:04 Normal Saline Iv IV CONT 75 mls/hr .[id number] COLEEN Infusion Metoprolol Succinate 100 mg 09/01/21 09:00 09/04/21 09:58 Metoprolol Succinate Ext Rel 100 Mg Tabcr PO 100 mg DAILY COLEEN Administration Morphine Sulfate 4 mg 08/31/21 11:29 Morphine Sulfate (*Crx) 4 Mg/Ml Inj IV PUSH
--- NOTE | 2021-09-04 19:23 | PM.DS ---
DS: Admitting Diagnosis Discharge Date 09/04/21 Admitting Diagnosis Choledocholithiasis DS: Discharge Diagnosis Discharge Diagnosis (1) Choledocholithiasis: Code(s): K80.50 - Calculus of bile duct without cholangitis or cholecystitis without obstruction Status: Acute Assessment and Plan: Presented with abdominal pain and evidence of biliary dilation on CT scan. MRCP performed 08/31/2021 showed choledocholithiasis with 7 x 6 mm gallstone in the distal aspect of the common bile duct with mild intrahepatic and moderate extrahepatic biliary ductal dilation. He was initiated on IV Zosyn and was seen in consultation by Gastroenterology. Underwent ERCP on 09/04/2021 which showed 11 mm dilation of the common bile duct without any evidence of stones, strictures, or filling defects. Large sphincterotomy was performed without any evidence of bleeding. Likely stones from the bile duct had already passed. His diet was advanced and he was able to tolerate a low-fat diet. He should avoid aspirin or other blood thinners for 5 days due to sphincterotomy. He had downward trend in LFTs and total bilirubin levels normalized. Zosyn discontinued per GI recommendations. Blood cultures negative. (2) Hypertension: Code(s): I10 - Essential (primary) hypertension Status: Chronic Assessment and Plan: Blood pressures reviewed and was generally well controlled. Continue metoprolol succinate and olmesartan-HCTZ. (3) Pulmonary nodule: Code(s): R91.1 - Solitary pulmonary nodule Status: Acute Assessment and Plan: First evident on CT abdomen/pelvis, follow-up chest CT performed 08/31/2021 showed approximately 12 noncalcified pulmonary nodules, measuring up to 2.4 cm. Differentials include metastatic disease, infectious or postinfectious etiology, cryptogenic organizing pneumonia. He did not have signs or symptoms to suggest infectious etiology. He does have a remote smoking history. Discussed these results with the patient and was offered options including biopsy during admission, repeat CT scan, or outpatient PET scan. He would like to follow-up with his primary care provider, Dr. Estrada. Request no further workup during this hospitalization. I spoke with his PCPs office to inform them of findings. He has follow-up appointment in 1 week. (4) Elevated liver enzymes: Code(s): R74.8 - Abnormal levels of other serum enzymes Status: Acute Assessment and Plan: Please see above DS: Summary Hospital Course Hospital Course: Date of admission: 08/31/2021 Date of discharge: 09/04/2021 Suman Neumann is a 76-year-old male with a history of atrial fibrillation, hypertension, and prostate cancer s/p prostatectomy who presented to the emergency department on 08/31/2021 with complaints of abdominal pain ongoing for 5 days and fever with abnormal outpatient bilirubin and LFTs, and he was referred to the ED for ultrasound. On presentation to the emergency department, his vital signs are stable, he was afebrile, WBC 54313, H&H slightly decreased, additional CBC and BMP unremarkable, LFTs elevated, total bilirubin 2.4, RUQ ultrasound showed evidence of prior cholecystectomy with normal appearing liver, CT abdomen/pelvis showed pulmonary nodules, biliary dilation. He was admitted to the hospitalist service for further evaluation and management and was seen in consultation by Gastroenterology. Please see above for further details. He underwent ERCP which demonstrated likely passage of biliary stones. His symptoms resolved and he was able to tolerate his diet. He began feeling much better and was eager for discharge home. He has plans to follow-up with his primary care provider in 1 week for evaluation of pulmonary nodules. Given his overall improvement, he was determined to no longer require inpatient care and was felt to be stable for discharge. Consulting specialist in agreement with flor
== END 2021-09-04 13:50 | disposition home or self-care (01) | DRG 446 ==
LOC: ANHED 08:47 → ANH3MEDSUR 13:15
PROVIDERS: Family Medicine; Internal Medicine Gastroenterology; Nurse Practitioner; Admitting Provider Internal Medicine; Emergency Provider Emergency Medicine; PCP Internal Medicine; Visit Provider Physician Assistant
PROC: 0F798ZZ Dilation of Common Bile Duct, Via Natural or Artificial Opening Endoscopic (ICD-10-PCS; CPT 43260; principal; 2021-09-03 14:00)
DX: K80.50 Calculus of bile duct without cholangitis or cholecystitis without obstruction (principal); K83.8 Other specified diseases of biliary tract; I10 Essential (primary) hypertension; R91.1 Solitary pulmonary nodule; R93.3 Abnormal findings on diagnostic imaging of other parts of digestive tract; R74.8 Abnormal levels of other serum enzymes; D72.829 Elevated white blood cell count, unspecified; D64.9 Anemia, unspecified; Z79.899 Other long term (current) drug therapy; Z87.891 Personal history of nicotine dependence; Z85.46 Personal history of malignant neoplasm of prostate; Z90.49 Acquired absence of other specified parts of digestive tract; Z90.79 Acquired absence of other genital organ(s)
CPT/HCPCS: 36415; 71250; 74177; 74183; 74329; 76376; 76705; 80048; 80053; 80074; 82550; 82728; 83540; 83550; 83605; 83615; 83690; 83735; 84443; 85025; 85027; 86140; 87040; 96361; 96365; 96376; 99285; A9270; A9577; C9113; G0378; J0330; J1100; J2405; J2543; J2704; J7030; J7120; Q9966; Q9967

== ENCOUNTER 2021-09-26 08:11 | Inpatient (IN) | payer MEDICARE, SELFPAY ==
[2021-09-26] VITALS (56 sets, daily range): BP systolic 112–146; BP diastolic 42–79; PULSE 60–72; RESP 12–22; TEMP 37.1–37.5; O2SAT 94–100; BMI 25.0
--- NOTE | ~2021-09-26 | MR_ITS ---
EXAMINATION: MR MRCP wo/w con/w 3D wo ind DATE: 09/27/2021 17:38 INDICATION: Pancreatitis. TECHNIQUE: Magnetic resonance imaging (MRI) of the abdomen was performed without and with 16 mL Multi Alexandro intravenous contrast. Sequences included coronal T2-weighted FS FSE, coronal T2-weighted FSE, a xial T1-weighted LAVA, coronal FS FIESTA, axial dual-echo T1-weighted SPGR, coronal lava-FLEX, sagitt al T2-weighted FSE, axial T2-weighted FSE, and axial DWI. Thick-slab T2-weighted FSE images were obta ined for magnetic resonance cholangiopancreatography (MRCP). Maximum intensity projection 3-D reconst ructions of the volumetric data were created by the technologist. Postcontrast sequences included cor onal LAVA-flex and time course of axial T1-weighted LAVA. COMPARISON: MRCP 08/31/2021, CT abdomen and pelvis 09/26/2021 FINDINGS: ABDOMEN MRI: The lungs demonstrate patchy airspace opacities and nodules. No pleural effusion. There is mild intrahepatic biliary duct dilatation. The spleen, pancreas, adrenal glands, and kidneys are n ormal. There are no dilated loops of bowel. ABDOMEN MRCP: The common duct measures 11 mm. There is no choledocholithiasis. IMPRESSION: 1. Mild intrahepatic and extrahepatic bile duct dilatation status post cholecystectomy, likely not cl inically significant given the normal liver function tests. No choledocholithiasis. 2. Patchy airspace opacities in the lungs, consistent with COVID-19 pneumonia. 3. Pulmonary nodules suspicious for metastatic disease. Reviewed, dictated and finalized at location A. RADE ROLLER OPERATOR IMPRESSION: 1. Mild intrahepatic and extrahepatic bile duct dilatation status post cholecys tectomy, likely not clinically significant given the normal liver function test s. No choledocholithiasis. 2. Patchy airspace opacities in the lungs, consistent with COVID-19 pneumonia. 3. Pulmonary nodules suspicious for metastatic disease.
--- NOTE | ~2021-09-26 | CT_ITS ---
EXAMINATION: CT abdomen pelvis w con DATE: 09/26/2021 10:23 INDICATION: Abdominal pain. TECHNIQUE: Computed tomography (CT) of the abdomen and pelvis was performed with 100 mL Omnipaque 350 intravenous contrast. Automated exposure control and iterative reconstruction technique were employe d. The dose-length product was 382.73 mGy-cm. COMPARISON: CT abdomen and pelvis 08/31/2021 FINDINGS: The visualized portions of the lung bases demonstrate multiple pulmonary nodules measuring up to 2.2 cm in left lower lobe. There are patchy ground glass opacities in the lower lobes. Calcifie d bilateral lung nodules and calcified mediastinal lymph nodes are consistent with old granulomatous disease. No pleural effusion. Cardiomegaly is noted. No pericardial effusion. The liver demonstrates pneumobilia, likely secondary to sphincterotomy. The gallbladder is absent. The spleen is normal. The re is a calcification in the pancreas, consistent with chronic pancreatitis. The adrenal glands and k idneys are normal. There are no dilated loops of bowel. The appendix is not visualized. There are no pathologically enlarged lymph nodes. There is no free intraperitoneal fluid. There is severe lumbar s pondylosis. IMPRESSION: 1. New groundglass opacities in the lower lobes suspicious for atypical pneumonia such as COVID-19 pn eumonia. 2. Stable pulmonary nodules suspicious for metastatic disease. Reviewed, dictated and finalized at location A. HT LOSS CONSULTANT IMPRESSION: 1. New groundglass opacities in the lower lobes suspicious for atypical pneumon ia such as COVID-19 pneumonia. 2. Stable pulmonary nodules suspicious for metastatic disease.
--- NOTE | ~2021-09-26 | XR_ITS ---
EXAMINATION: XR chest 1V portable EXAM DATE: 09/26/2021 13:02 INDICATION: Cough, pancreatitis. TECHNIQUE: Frontal and lateral projections of the chest obtained and reviewed. There is no prior luisito dy for comparison. FINDINGS: Patchy left mid and lower lung zone ill-defined airspace disease superimposed on 2 left lo wer lobe masses are identified, correlate with CT scan from 08/31/2021. There is no pneumothorax susp ected. There are no pleural effusions. Cardiomediastinal silhouette is normal. IMPRESSION: Developing patchy acute ill-defined airspace disease probably pneumonia superimposed on p reviously identified lung masses. Reviewed, dictated and finalized at location B. MATION QA ANALYST IMPRESSION: Developing patchy acute ill-defined airspace disease probably pneum onia superimposed on previously identified lung masses.
--- NOTE | 2021-09-26 08:32 | ED.GENADULT ---
HPI - General Adult General Chief complaint: Abdominal Pain Stated complaint: abd pain Time Seen by Provider: 09/26/21 08:13 History of Present Illness HPI narrative: Patient is a 76-year-old gentleman who presents to emergency department chief complaint of abdominal pain. Patient reports that he was in the hospital about a month ago for biliary ductal stone the patient had an ERCP done by Dr. Watson and was starting to feel better the patient returns back to the emergency department today after he is starting to have more episodes of abdominal pain. Patient states that worse whenever he is sitting up and reports that is not improved by anything. The patient denies jaundice this denies dark-colored urine at this time. Related Data Home Medications Medication Instructions Recorded Confirmed citalopram 40 mg PO DAILY 08/31/21 09/03/21 metoprolol succinate 100 mg PO DAILY 08/31/21 09/03/21 olmesartan-hydrochlorothiazide 1 tablet PO DAILY 08/31/21 09/03/21 omeprazole 20 mg PO DAILY 08/31/21 09/03/21 trazodone 50 mg PO HS PRN 08/31/21 09/03/21 Allergies Allergy/AdvReac Type Severity Reaction Status Date / Time No Known Allergies Allergy Mild Verified 09/03/21 13:01 Review of Systems Review of Systems: A 10 system review of systems was completed on the patient and is negative except for what is stated in the HPI. Nursing and ancillary documentation was reviewed. [facility] Past Medical History Medical History Atrial fibrillation Cataract Choledocholithiasis Dilated bile duct Elevated liver enzymes Family history of cholecystectomy History of prostate cancer status post prostatectomy. Hypertension Leukocytosis Lung mass Nausea and vomiting in adult Prostate CA Pulmonary nodule RUQ pain SIRS (systemic inflammatory response syndrome) Surgical History Surgical History History of appendectomy History of prostatectomy Family History Family History Sibling Parkinsons sister Brain cancer sister and brother Father Lung cancer Other Unknown family medical history Social History Social History Social History: the patient lives home alone he is . He has 1 daughter who he deems her as his durable power hrbp for healthcare. The patient stated that he quit smoking 53 years ago. Occasionally drinks a beer. 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 He denies any marijuana or illicit drugs. Code status full code Smoking status: Former smoker Alcohol intake: never Substance use: never Substance use type: does not use Spiritual care concerns: No Exam Narrative: GENERAL: Well-appearing, well-nourished, and in no acute distress. HEAD: Normocephalic, atraumatic. EYES: PERRLA and EOMI. ENT: Nares clear, no rhinorrhea or epistaxis. Mucous membranes moist. NECK: Supple. CHEST: Clear to auscultation. No respiratory distress. HEART: Regular rate and rhythm. No murmur heard. Normal peripheral pulses. ABDOMEN: Soft, nontender, nondistended, normal active bowel sounds. EXTREMITIES: Normal range of motion. No edema. SKIN: Warm, dry, no rash. NEURO: No focal deficits. Alert and oriented x3. PSYCH: Normal mood and affect. Course Vital Signs Vital signs: Vital Signs Pulse Rate 66 09/26/21 08:26 Respiratory Rate 14 09/26/21 08:26 Pulse Oximetry 98 09/26/21 08:26 Temperature 37.1 C 09/26/21 08:28 Pulse Rate 65 09/26/21 11:45 Respiratory Rate 13 09/26/21 11:45 Blood Pressure 117/69 09/26/21 09:16 Pulse Oximetry 99 09/26/21 11:45 Medical Decision Making Vital Signs Vital Signs: Vital Signs Pulse Rate 66 09/26/21 08:26 Respiratory Rate 14 09/26/21 08:26 P
[2021-09-26 09:04] LABS: Basophils Percent Auto 0.5 % (0.2-1.2); Eosinophils Absolute Auto 0.2 K/mm3 (0-0.3); Eosinophils Percent Auto 2.1 % (0-4.4); Hematocrit 34.2 % (42.0-52.0); Hemoglobin 11.2 g/dL (14.0-18.0); Immature Granulocyte Absolute 0.04 K/mm3 (0.00-0.031); Immature Granulocyte Percent A 0.5 % (0-0.5); Lymphocytes Absolute Auto 1.69 K/mm3 (0.9-3.2); Lymphocytes Percent Auto 20.8 % (18.3-44.2); Mean Corpuscular HGB Conc 32.7 g/dl (32-36); Mean Corpuscular Hemoglobin 21.7 pg (26-34); Mean Corpuscular Volume 66.3 fl (80-100); Mean Platelet Volume 10.8 fl (7.4-10.4); Monocytes Absolute Auto 0.8 K/mm3 (0.1-0.6); Monocytes Percent Auto 10.2 % (2.6-8.5); Neutrophils Absolute Auto 5.4 K/mm3 (1.3-6.7); Neutrophils Percent Auto 65.9 % (45.5-73.1); Platelet Count Result 205 k/mm3 (150-375); Red Blood Count 5.16 M/mm3 (4.6-6.20); Red Cell Distribution Width 14.7 % (11.5-14.5); White Blood Count 8.1 K/mm3 (4.5-10.0)
[2021-09-26 09:14] LABS: Prothrombin Time 13.3 Seconds (11.1-14.7)
[2021-09-26 09:15] LABS: Partial Thromboplastin Time 31.8 SECONDS (22.3-36.8)
[2021-09-26 09:21] LABS: Alanine Aminotransferase 18 U/L (4-50); Albumin Level 3.6 g/dL (3.5-5.1); Alkaline Phosphatase 131 U/L (38-126); Anion Gap 12 mmol/L (8-16); Aspartate Amino Transferase 24 U/L (17-59); Blood Urea Nitrogen 13 mg/dL (9-20); Calcium 8.7 mg/dL (8.4-10.2); Carbon Dioxide 22 mmol/L (22-30); Chloride 100 mmol/L (98-107); Estimated CRCL calculation 71 ml/min; Estimated Glomerular Filt Rate > 60; Glucose 100 mg/dL (65-110); Lactic Acid Reflex 0.8 mmol/L (0.7-2.1); Lipase 1449 U/L (23-300); Potassium 4.2 mmol/L (3.4-5.0); Sodium 134 mmol/L (137-145)
[2021-09-26] MEDS: SODIUM CHLORIDE 0.9% IV 1,000 ML 999 ML IV CONT (09:58)
[2021-09-26] MEDS: ONDANSETRON INJ 4 MG/2 ML VIAL IV PUSH (09:58)
--- NOTE | 2021-09-26 13:15 | PM.IMHP ---
H&P: HPI History of Present Illness Date/Time: 09/26/21 13:15 Chief Complaint: Abdominal pain. Narrative: This is a 76-year-old male with hypertension and prostate cancer status post prostatectomy who presented to the emergency department earlier today for evaluation of abdominal pain. He was recently hospitalized from 08/31/2021 through 09/04/2021 with abdominal pain, found to have elevated LFTs with ductal dilatation and evidence of choledocholithiasis on MRCP. The stone must have passed as only sludge was noted on ERCP. Additionally he was found to have pulmonary nodules on imaging concerning for metastatic disease and it sounds as though he has an upcoming PET-CT scan as an outpatient for further evaluation. In any event he has felt pretty good since discharge though over the last 5 days he has once again started to have abdominal discomfort. He describes a sharp, stabbing, and knife-like pain in the epigastric region radiating to the umbilicus. The pain is fleeting and self-limited, typically lasting anywhere between 2 to 10 seconds. Food does seem to make it worse and he has not had anything to eat or drink for the last 24 hours. He was found to have an elevated lipase and a subsequent CT of the abdomen and pelvis showed calcification of the pancreas consistent with chronic pancreatitis though no acute inflammation. The visualized lung bases showed new ground-glass opacities in the lower lobe suspicious for atypical pneumonia such as COVID. With further questioning he does endorse fatigue and generalized malaise as well as decreased appetite. He denies fever, chills, sweats, headache, sinus congestion, rhinorrhea, otalgia, odynophagia, body aches, shortness of breath, cough, nausea, vomiting, and diarrhea. He lives at home alone and denies sick contacts. Review of Systems Review of Systems: Twelve systems were reviewed and are negative except for as per HPI. [facility] Past Medical History Medical History (Updated 09/26/21 @ 13:35 by Janae Ayala PA-C) Choledocholithiasis (08/2021) Status post ERCP on 09/03/2021. Chronic anemia Iron studies in August 2021 consistent with anemia of chronic disease. Dilated bile duct Status post ERCP on 09/03/2021 with large sphincterotomy. No stones noted, only sludge. Gastroesophageal reflux disease Hypertension Paroxysmal atrial fibrillation Prostate cancer (11/2004) Status post prostatectomy. Pulmonary nodules Initially noted on CT on 08/31/2021. At that time patient declined biopsy and has been following with his primary care provider. Surgical History Surgical History History of appendectomy History of cholecystectomy History of colonoscopy with polypectomy (12/2005) Diverticulosis, internal hemorrhoids, and 2 benign sigmoid colon polyps per Dr. Rush. History of endoscopic retrograde cholangiopancreatography (09/03/21) History of prostatectomy (11/2004) Family History Family History Sibling Parkinsons sister Brain cancer sister and brother Father Lung cancer Other Unknown family medical history Social History Social History (Updated 09/26/21 @ 20:07 by Janae Ayala PA-C) Social History: The patient is and lives in his own home in [place]. 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 He smoked remotely and quit over 50 years ago. Drinks an occasional beer. No illicit substance use. He designates his daughter, Kiki burgos, as his surrogate decision maker. Code status: Full code. Meds Home Medications and Allergies Home Medications Medication Instructions Recorded Confirmed Type citalopram 40 mg PO DAILY 08/31/21 09/26/21 History metoprolol succinate 100 mg PO DAILY 08/31/21 09/26/21 History olmesartan-hydrochlorothiazide 1 tablet PO DAILY 08/31/21 09/26/21 History omeprazole 20 mg PO SHEILA
[2021-09-26] MEDS: SODIUM CHLORIDE 0.9% IV 1,000 ML 125 ML IV CONT (13:35)
--- NOTE | 2021-09-26 16:58 | PC.NURSE ---
Attempted to give report to Lane RAMIREZ x1
--- NOTE | 2021-09-26 17:29 | PC.NURSE ---
Attempted to call report to Lane RAMIREZ x2
--- NOTE | 2021-09-26 18:37 | ADMGEN ---
This patient, Suman Neumann, was admitted to [facility] Surg Room 301-01. Patient/family oriented to hospital policies and general routines including ID bracelet, bed and alarms, visiting hours, pain management, procedures, bathroom and other care routines, personal items, smoking policy, room service/diet, and visiting hours. Information on how to activate the Rapid Response Team has been discussed. Patient/Family are encouraged to report perceived risks to care and to ask questions if they do not understand what they are told or what they should do.
[2021-09-27 00:18] VITALS: O2SAT 97
[2021-09-27] MEDS: SODIUM CHLORIDE 0.9% IV 1,000 ML 125 ML IV CONT ×2 (01:18→22:10)
[2021-09-27 05:09] VITALS: BP 131/70; PULSE 73; RESP 18; TEMP 36.8; O2SAT 98
[2021-09-27 07:15] LABS: Hematocrit 33.1 % (42.0-52.0); Hemoglobin 10.9 g/dL (14.0-18.0); Immature Platelet Fraction Pct 6.8 % (0.9-11.2); Mean Corpuscular HGB Conc 32.9 g/dl (32-36); Mean Corpuscular Hemoglobin 21.7 pg (26-34); Mean Corpuscular Volume 65.9 fl (80-100); Mean Platelet Volume 11.6 fl (7.4-10.4); Platelet Count Result 213 k/mm3 (150-375); Red Blood Count 5.02 M/mm3 (4.6-6.20); Red Cell Distribution Width 14.6 % (11.5-14.5); White Blood Count 9.2 K/mm3 (4.5-10.0)
[2021-09-27 07:21] LABS: Alanine Aminotransferase 17 U/L (4-50); Albumin Level 3.5 g/dL (3.5-5.1); Alkaline Phosphatase 114 U/L (38-126); Anion Gap 9 mmol/L (8-16); Aspartate Amino Transferase 24 U/L (17-59); Bilirubin,Total 1.2 mg/dL (0.2-1.3); Blood Urea Nitrogen 13 mg/dL (9-20); CRP 7.6 mg/dL (<1.0); Calcium 8.1 mg/dL (8.4-10.2); Carbon Dioxide 19 mmol/L (22-30); Chloride 104 mmol/L (98-107); Estimated CRCL calculation 80 ml/min; Estimated Glomerular Filt Rate > 60; Glucose 69 mg/dL (65-110); Lactate Dehydrogenase 392 U/L (313-618); Lipase 722 U/L (23-300); Potassium 3.8 mmol/L (3.4-5.0); Sodium 132 mmol/L (137-145)
--- NOTE | 2021-09-27 09:45 | PM.IMPN ---
Progress Note: A&P Assessment and Plan (1) Abdominal pain: Code(s): R10.9 - Unspecified abdominal pain Status: Acute Assessment and Plan: CT of the abdomen pelvis shows chronic pancreatitis with no acute inflammation Lipase elevate 1449 upon admission Lipase today 722 Continue to trend lipase IV fluids NS at 100ml/Hr Anti-emetics: Zofran 4mg IV Q4hr NPO diet Liver enzymes elevated GI consulted for further recommendations (2) Pancreatitis: Code(s): K85.90 - Acute pancreatitis without necrosis or infection, unspecified Status: Acute Assessment and Plan: See above (3) Pulmonary nodules: Code(s): R91.8 - Other nonspecific abnormal finding of lung field Status: Acute Assessment and Plan: Found on the CT Scheduled for a PET scan outpatient (4) Chronic anemia: Code(s): D64.9 - Anemia, unspecified Status: Acute Assessment and Plan: H/H stable upon admission Continue to trend Anemia labs from Aug: Iron 58, TIBC 215, % sat 27, Ferritin 549 B12 468 and folate pending Supplement as indicated (5) Hypertension: Code(s): I10 - Essential (primary) hypertension Status: Chronic Assessment and Plan: 131/70 current Metoprolol 100mg PO daily, HCTZ 25mg PO daily Trend BP Adjust therapy as indicated (6) COVID-19: Code(s): U07.1 - COVID-19 Status: Acute Assessment and Plan: Covid PCR positive, however stated that he was positive 3 weeks ago Vaccinated X 2 with Maderna On room air No indication for remdesivir or Decadron SPO2 95-100% Continue to trend Inflammatory markers: Ferritin , CRP 7.6, LDH 392 Could check d.dimer if indicated Lovenox 40mg SubQ Daily Time Spent With Patient Time with patient: Greater than 35 minutes Subjective Date/time seen: 09/27/21 0945 Interval history: Date/Time: 09/26/21 13:15 Narrative: This is a 76-year-old male with hypertension and prostate cancer status post prostatectomy who presented to the emergency department earlier today for evaluation of abdominal pain. He was recently hospitalized from 08/31/2021 through 09/04/2021 with abdominal pain, found to have elevated LFTs with ductal dilatation and evidence of choledocholithiasis on MRCP. The stone must have passed as only sludge was noted on ERCP. Additionally he was found to have pulmonary nodules on imaging concerning for metastatic disease and it sounds as though he has an upcoming PET-CT scan as an outpatient for further evaluation. In any event he has felt pretty good since discharge though over the last 5 days he has once again started to have abdominal discomfort. He describes a sharp, stabbing, and knife-like pain in the epigastric region radiating to the umbilicus. The pain is fleeting and self-limited, typically lasting anywhere between 2 to 10 seconds. Food does seem to make it worse and he has not had anything to eat or drink for the last 24 hours. He was found to have an elevated lipase and a subsequent CT of the abdomen and pelvis showed calcification of the pancreas consistent with chronic pancreatitis though no acute inflammation. The visualized lung bases showed new ground-glass opacities in the lower lobe suspicious for atypical pneumonia such as COVID. With further questioning he does endorse fatigue and generalized malaise as well as decreased appetite. He denies fever, chills, sweats, headache, sinus congestion, rhinorrhea, otalgia, odynophagia, body aches, shortness of breath, cough, nausea, vomiting, and diarrhea. He lives at home alone and denies sick contacts. Date/Time 09/27/21 3145 Patient is really not ok today. He keep talking about being very depressed and that he has really been down since his . He also stated that he is weak and that he is very tired of being sick. He denies pain, chest pain, shortness of breath, na
--- NOTE | 2021-09-27 09:45 | P.PNIM_ITS ---
Progress Note: A&P Assessment and Plan (1) Abdominal pain: Code(s): R10.9 - Unspecified abdominal pain Status: Acute Assessment and Plan: * CT of the abdomen pelvis shows chronic pancreatitis with no acute inflammation * Lipase elevate 1449 upon admission * Lipase today 722 * Continue to trend lipase * IV fluids NS at 100ml/Hr * Anti-emetics: Zofran 4mg IV Q4hr * NPO diet * Liver enzymes elevated * GI consulted for further recommendations (2) Pancreatitis: Code(s): K85.90 - Acute pancreatitis without necrosis or infection, unspecified Status: Acute Assessment and Plan: * See above (3) Pulmonary nodules: Code(s): R91.8 - Other nonspecific abnormal finding of lung field Status: Acute Assessment and Plan: * Found on the CT * Scheduled for a PET scan outpatient (4) Chronic anemia: Code(s): D64.9 - Anemia, unspecified Status: Acute Assessment and Plan: * H/H stable upon admission * Continue to trend * Anemia labs from Aug: Iron 58, TIBC 215, % sat 27, Ferritin 549 * B12 468 and folate pending * Supplement as indicated (5) Hypertension: Code(s): I10 - Essential (primary) hypertension Status: Chronic Assessment and Plan: * 131/70 current * Metoprolol 100mg PO daily, HCTZ 25mg PO daily * Trend BP * Adjust therapy as indicated (6) COVID-19: Code(s): U07.1 - COVID-19 Status: Acute Assessment and Plan: * Covid PCR positive, however stated that he was positive 3 weeks ago * Vaccinated X 2 with Maderna * On room air * No indication for remdesivir or Decadron * SPO2 95-100% * Continue to trend * Inflammatory markers: Ferritin , CRP 7.6, LDH 392 * Could check d.dimer if indicated * Lovenox 40mg SubQ Daily Time Spent With Patient Time with patient: Greater than 35 minutes Subjective Date/time seen: 09/27/21 0945 Interval history: Date/Time: 09/26/21 13:15 Narrative: This is a 76-year-old male with hypertension and prostate cancer status post prostatectomy who presented to the emergency department earlier today for evaluation of abdominal pain. He was recently hospitalized from 08/31/2021 through 09/04/2021 with abdominal pain, found to have elevated LFTs with ductal dilatation and evidence of choledocholithiasis on MRCP. The stone must have passed as only sludge was noted on ERCP. Additionally he was found to have pulmonary nodules on imaging concerning for metastatic disease and it sounds as though he has an upcoming PET-CT scan as an outpatient for further evaluation. In any event he has felt pretty good since discharge though over the last 5 days he has once again started to have abdominal discomfort. He describes a sharp, stabbing, and knife-like pain in the epigastric region radiating to the umbilicus. The pain is fleeting and self-limited, typically lasting anywhere between 2 to 10 seconds. Food does seem to make it worse and he has not had anything to eat or drink for the last 24 hours. He was found to have an elevated lipase and a subsequent CT of the abdomen and pelvis showed calcification of the pancreas consistent with chronic pancreatitis though no acute inflammation. The visualized lung bases showed new ground-glass opacities in the lower lobe suspicious for atypical pneumonia such as COVID. With further questioning he does endorse fatigue and generalized malaise as well as decreased appetite. He denies fev
[2021-09-27 14:00] VITALS: BP 132/65; PULSE 71; RESP 18; TEMP 37.3; O2SAT 98
--- NOTE | 2021-09-27 15:07 | WPDGICN ---
Assessment and Plan Assessment and plan (1) Pancreatitis: Code(s): K85.90 - Acute pancreatitis without necrosis or infection, unspecified Status: Acute Assessment and Plan: Patient admitted with pancreatitis. Clinically he has improved. Lipase is half of what it was yesterday. Plan is for MRCP to exclude residual common bile duct gallstone. I suspect there was sludge or retained common bile duct stone that passed prompting this episode of pancreatitis. Most likely most often this occurs within stone passes in duodenum. Plan is for MRCP to exclude any residual common duct stone. At the present time will advance to a low-fat diet. Discharge later today or tomorrow if MRCP normal and diet tolerated without pain. Follow-up little left TS in lipase can be performed as well. (2) Pulmonary nodules: Code(s): R91.8 - Other nonspecific abnormal finding of lung field Status: Acute Assessment and Plan: Pulmonary nodules noted on chest x-ray etiology is unclear. Follow-up with Pulmonary Service advised. (3) Chronic anemia: Code(s): D64.9 - Anemia, unspecified Status: Acute Assessment and Plan: Patient has chronic microcytic anemia. Appears to be most consistent with anemia of chronic disease given his iron studies. CBC can be followed electively as an outpatient. GI Consult Note Consult date/time: 09/27/21 15:07 HPI: Suman Neumann is a 76 year old male I am asked to see for acute pancreatitis. Patient has a history that he was admitted the hospital 1 month ago. At that time was found to have MRCP that suggested common bile duct gallstone. An ERCP was performed by Dr. Watson. 7Mm sphincterotomy was performed but only sludge extracted. Patient did well and was sent home. He did well until 4 days ago when he began to have mid epigastric pain very similar to his previous episode of pancreatitis. This pain was manifested primarily after eating. He states that his urine became dark. He denies any obvious yellowness to his eyes however. He presented the emergency room was found to have elevated lipase that is improved today. He no longer has pain having been made NPO. Patient's past medical history is significant for prostate cancer status post prostatectomy. He has chest x-ray that shows lung masses. He did have an episode of COVID infection 1 month ago that has now resolved. His family history is noncontributory. Review of Systems Review of Systems: All systems reviewed & are unremarkable except as noted in HPI and below PMFSH Past Medical History Medical History (Updated 09/27/21 @ 07:29 by JHONYN Andrade) Choledocholithiasis (08/2021) Status post ERCP on 09/03/2021. Chronic anemia Iron studies in August 2021 consistent with anemia of chronic disease. Dilated bile duct Status post ERCP on 09/03/2021 with large sphincterotomy. No stones noted, only sludge. Gastroesophageal reflux disease Hypertension Paroxysmal atrial fibrillation Prostate cancer (11/2004) Status post prostatectomy. Pulmonary nodules Initially noted on CT on 08/31/2021. At that time patient declined biopsy and has been following with his primary care provider. Surgical History Surgical History History of appendectomy History of cholecystectomy History of colonoscopy with polypectomy (12/2005) Diverticulosis, internal hemorrhoids, and 2 benign sigmoid colon polyps per Dr. Rush. History of endoscopic retrograde cholangiopancreatography (09/03/21) History of prostatectomy (11/2004) Family History Family History Sibling Parkinsons sister Brain cancer sister and brother Father Lung cancer Other Unknown family medical history Social History Social History (Updated 09/26/21 @ 20:07 by Janae Ayala PA-C) Social History: The patient is
[2021-09-27] MEDS: CITALOPRAM HYDROBROMIDE 10 MG TABLET 40 MG PO (16:23)
[2021-09-27] MEDS: ENOXAPARIN 40 MG/0.4 ML SYRINGE SUB-Q (16:24)
[2021-09-27] MEDS: OLMESARTAN MEDOXOMIL 20 MG TABLET 40 MG PO (16:24)
[2021-09-27 16:25] VITALS: PULSE 71
[2021-09-27] MEDS: hydroCHLOROthiazide 25 MG TABLET PO (16:25)
[2021-09-27] MEDS: METOPROLOL SUCCINATE EXT REL 100 MG TABCR PO (16:25)
[2021-09-27] MEDS: PANTOPRAZOLE 40 MG TABLET PO (16:25)
[2021-09-27 22:00] VITALS: BP 114/51; PULSE 52; RESP 18; TEMP 36.9; O2SAT 97
[2021-09-27] MEDS: ONDANSETRON INJ 4 MG/2 ML VIAL IV PUSH (22:11)
[2021-09-27] MEDS: ACETAMINOPHEN 325 MG TABLET 650 MG PO (23:50)
[2021-09-27] MEDS: traZODone HCL 50 MG TABLET PO (23:51)
[2021-09-28 05:47] VITALS: BP 130/55; PULSE 52; RESP 18; TEMP 36.6; O2SAT 100
[2021-09-28] MEDS: SODIUM CHLORIDE 0.9% IV 1,000 ML 125 ML IV CONT ×2 (06:21→16:02)
[2021-09-28 06:35] LABS: Basophils Percent Auto 0.4 % (0.2-1.2); Eosinophils Absolute Auto 0.3 K/mm3 (0-0.3); Hematocrit 31.4 % (42.0-52.0); Hemoglobin 10.1 g/dL (14.0-18.0); Immature Granulocyte Absolute 0.05 K/mm3 (0.00-0.031); Immature Granulocyte Percent A 0.7 % (0-0.5); Lymphocytes Absolute Auto 2.03 K/mm3 (0.9-3.2); Lymphocytes Percent Auto 29.3 % (18.3-44.2); Mean Corpuscular HGB Conc 32.2 g/dl (32-36); Mean Corpuscular Hemoglobin 21.6 pg (26-34); Mean Corpuscular Volume 67.1 fl (80-100); Mean Platelet Volume 11.1 fl (7.4-10.4); Monocytes Absolute Auto 0.8 K/mm3 (0.1-0.6); Neutrophils Absolute Auto 3.8 K/mm3 (1.3-6.7); Neutrophils Percent Auto 54.6 % (45.5-73.1); Platelet Count Result 225 k/mm3 (150-375); Red Blood Count 4.68 M/mm3 (4.6-6.20); Red Cell Distribution Width 14.9 % (11.5-14.5); White Blood Count 6.9 K/mm3 (4.5-10.0)
[2021-09-28 06:53] LABS: Alanine Aminotransferase 14 U/L (4-50); Albumin Level 3.1 g/dL (3.5-5.1); Alkaline Phosphatase 106 U/L (38-126); Anion Gap 4 mmol/L (8-16); Aspartate Amino Transferase 23 U/L (17-59); Bilirubin,Total 0.9 mg/dL (0.2-1.3); Blood Urea Nitrogen 11 mg/dL (9-20); Calcium 8.3 mg/dL (8.4-10.2); Carbon Dioxide 26 mmol/L (22-30); Chloride 102 mmol/L (98-107); Estimated CRCL calculation 80 ml/min; Estimated Glomerular Filt Rate > 60; Glucose 94 mg/dL (65-110); Lipase 812 U/L (23-300); Magnesium 2.1 mg/dL (1.6-2.3); Potassium 3.8 mmol/L (3.4-5.0); Sodium 132 mmol/L (137-145)
--- NOTE | 2021-09-28 08:53 | WPDGIPROGNO ---
Progress Note: A&P Assessment and Plan (1) Pulmonary nodules: Code(s): R91.8 - Other nonspecific abnormal finding of lung field Status: Acute Assessment and Plan: Pulmonary nodules noted on chest x-ray of uncertain significance continue pulmonary follow-up advised I understand a PET scan is pending. (2) Abdominal pain: Code(s): R10.9 - Unspecified abdominal pain Status: Acute Assessment and Plan: Abdominal pain resolved. Likely from recent pancreatitis now resolved. (3) Chronic anemia: Code(s): D64.9 - Anemia, unspecified Status: Acute Assessment and Plan: Chronic anemia likely multifactorial. Iron studies suggest anemia of chronic disease. (4) Acute pancreatitis: Qualifiers: Acute pancreatitis complication: unspecified Pancreatitis type: unspecified pancreatitis type Qualified Code(s): K85.90 - Acute pancreatitis without necrosis or infection, unspecified Code(s): K85.90 - Acute pancreatitis without necrosis or infection, unspecified Status: Acute Assessment and Plan: Pancreatitis resolved clinically. LFTs have returned to normal. Lipase diminished. Most consistent with passage of either sludge or retained common duct stone. MRCP reveals no stone and patent common bile duct at present. Would advance diet and discharge on a low-fat diet. Consider follow-up labs as an outpatient. Subjective Date/time seen: 09/28/21 08:53 Patient comfortable this morning. Denies abdominal pain. Tolerated low-fat diet with no significant discomfort. Review of Systems Review of Systems: All systems reviewed & are unremarkable except as noted in HPI and below Exam Narrative: Physical exam reveals patient to be alert. Vital signs stable. HEENT exam reveals no icterus. Lungs are clear. Heart without murmur. Abdomen bowel sounds are present soft nontender with no organomegaly. Objective Data Vital Signs Vital Signs: Vital Signs - 24 hr 09/27/21 14:00 09/27/21 16:25 09/27/21 22:00 Temperature 99.2 F 98.4 F Pulse Rate 71 71 52 L Respiratory Rate 18 18 Blood Pressure 132/65 114/51 L Pulse Oximetry 98 97 09/28/21 05:47 Temperature 97.9 F Pulse Rate 52 L Respiratory Rate 18 Blood Pressure 130/55 L Pulse Oximetry 100 Intake/Output Intake/Output: Intake & Output 12/14/21 12/15/21 12/16/21 12/17/21 23:59 23:59 23:59 23:59 Intake Total 1999 1360 1000 Balance 1999 1360 1000 Meds/Results Medications: Active Medications Generic Name Dose Route Start Last Admin Trade Name Freq PRN Reason Stop Dose Admin Acetaminophen 650 mg 09/26/21 20:11 09/27/21 23:50 Acetaminophen 325 Mg Tablet PO 650 mg Q6H PRN Administration Mild Pain (1-3) or Fever Hydrocodone Bitart/Acetaminophen 1 tab 09/26/21 20:11 Hydrocodone/Acetaminophen (*Crx) 5-325 Mg Tablet PO Q6H PRN Pain Rated 4-6 Citalopram Hydrobromide 40 mg 09/27/21 09:00 09/27/21 16:23 Citalopram Hydrobromide 10 Mg Tablet PO 40 mg DAILY COLEEN Administration Enoxaparin Sodium 40 mg 09/27/21 09:00 09/27/21 16:24 Enoxaparin 40 Mg/0.4 Ml Syringe SUB-Q 40 mg DAILY COLEEN Administration Hydrochlorothiazide 25 mg 09/27/21 09:00 09/27/21 16:25 Hydrochlorothiazide 25 Mg Tablet PO 25 mg QAM COLEEN Administration Sodium Chloride 1,000 mls @ 100 mls/hr 09/26/21 12:35 09/28/21 06:21 Normal Saline Iv IV CONT 125 mls/hr .Q10H COLEEN Administration Metoprolol Succinate 100 mg 09/27/21 09:00 09/27/21 16:25 Metoprolol Succinate Ext Rel 100 Mg Tabcr PO 100 mg DAILY COLEEN Administration Morphine Sulfate 4 mg 09/26/21 12:34 Morphine Sulfate (*Crx) 4 Mg/Ml Inj IV PUSH Q2H PRN Pain Rated 7-10 Olmesartan 40 mg 09/27/21 09:00 09/27/21 16:24 Olmesartan Medoxomil 20 Mg Tablet PO 40 mg QAM COLEEN Administration Ondansetron HCl 4 mg 09/26/21 12:34 09/27/21 22:11 Ondansetron Inj 4 Mg/2 Ml
[2021-09-28] MEDS: CITALOPRAM HYDROBROMIDE 10 MG TABLET 40 MG PO (09:26)
[2021-09-28 09:27] VITALS: PULSE 56
[2021-09-28] MEDS: hydroCHLOROthiazide 25 MG TABLET PO (09:27)
[2021-09-28] MEDS: METOPROLOL SUCCINATE EXT REL 100 MG TABCR PO (09:27)
[2021-09-28] MEDS: OLMESARTAN MEDOXOMIL 20 MG TABLET 40 MG PO (09:27)
[2021-09-28] MEDS: ENOXAPARIN 40 MG/0.4 ML SYRINGE SUB-Q (09:27)
[2021-09-28] MEDS: PANTOPRAZOLE 40 MG TABLET PO (09:29)
--- NOTE | 2021-09-28 11:20 | P.CDI_ITS ---
CDI Query Clarification Request Patient admitted 09/26 with acute pancreatitis. Patient has a history of being COVID positive three weeks prior to admission. Patient had a positive COVID test on 09/26. CT on 09/26/21 revealed New groundglass opacities in the lower lobes suspicious for atypical pneumonia such as COVID-19 pneumonia . Please clarify status of COVID-19 in this patient if known: * Active * History * Other <Cici Fox, VALVER - Last Filed: 09/28/21 11:25> The patient stated that he was discharged from the hospital the next day when got a COVID test which came back positive which was about 3 weeks ago. No documented positive until 09/26. However it is possible for COVID test to be positive for weeks after being COVID positive. When not think this is acute at this time due to the patient not any any oxygen or having any issues with breathing. However 1 can not be [address] did reveal new ground-glass opacities in the lower lobes however they could be new since he was tested positive for COVID 3 weeks ago that could be new from the CT that that compared to. <JHONNY Andrade - Last Filed: 09/28/21 14:26>
[2021-09-28 14:00] VITALS: BP 133/67; PULSE 64; RESP 18; TEMP 36.6; O2SAT 97
--- NOTE | 2021-09-28 14:00 | P.PNIM_ITS ---
Progress Note: A&P Assessment and Plan (1) Abdominal pain: Code(s): R10.9 - Unspecified abdominal pain Status: Acute Assessment and Plan: * CT of the abdomen pelvis shows chronic pancreatitis with no acute inflammation * Lipase elevate 1449 upon admission * Lipase today 812/1930 * Continue fluids * Continue to trend lipase * IV fluids NS at 100ml/Hr * Anti-emetics: Zofran 4mg IV Q4hr * advanced to low fat diet * GI consulted for further recommendations (2) Pancreatitis: Code(s): K85.90 - Acute pancreatitis without necrosis or infection, unspecified Status: Acute Assessment and Plan: * See above (3) Pulmonary nodules: Code(s): R91.8 - Other nonspecific abnormal finding of lung field Status: Acute Assessment and Plan: * Found on the CT * Scheduled for a PET scan outpatient (4) Chronic anemia: Code(s): D64.9 - Anemia, unspecified Status: Acute Assessment and Plan: * H/H stable upon admission * Continue to trend * Anemia labs from Aug: Iron 58, TIBC 215, % sat 27, Ferritin 549 * B12 468 and folate pending * Supplement as indicated (5) Hypertension: Code(s): I10 - Essential (primary) hypertension Status: Chronic Assessment and Plan: * 130/55 current * Metoprolol 100mg PO daily, HCTZ 25mg PO daily * Trend BP * Adjust therapy as indicated (6) COVID-19: Code(s): U07.1 - COVID-19 Status: Acute Assessment and Plan: * Covid PCR positive, however stated that he was positive 3 weeks ago * Vaccinated X 2 with Maderna * On room air * No indication for remdesivir or Decadron * SPO2 95-100% * Continue to trend * Inflammatory markers: Ferritin 699, CRP 7.6, LDH 392 * Could check d.dimer if indicated * Lovenox 40mg SubQ Daily Time Spent With Patient Time with patient: Greater than 35 minutes Subjective Date/time seen: 09/28/21 1400 Interval history: Date/Time: 09/26/21 13:15 Narrative: This is a 76-year-old male with hypertension and prostate cancer status post prostatectomy who presented to the emergency department earlier today for evaluation of abdominal pain. He was recently hospitalized from 08/31/2021 through 09/04/2021 with abdominal pain, found to have elevated LFTs with ductal dilatation and evidence of choledocholithiasis on MRCP. The stone must have passed as only sludge was noted on ERCP. Additionally he was found to have pulmonary nodules on imaging concerning for metastatic disease and it sounds as though he has an upcoming PET-CT scan as an outpatient for further evaluation. In any event he has felt pretty good since discharge though over the last 5 days he has once again started to have abdominal discomfort. He describes a sharp, stabbing, and knife-like pain in the epigastric region radiating to the umbilicus. The pain is fleeting and self-limited, typically lasting anywhere between 2 to 10 seconds. Food does seem to make it worse and he has not had anything to eat or drink for the last 24 hours. He was found to have an elevated lipase and a subsequent CT of the abdomen and pelvis showed calcification of the pancreas consistent with chronic pancreatitis though no acute inflammation. The visualized lung bases showed new ground-glass opacities in the lower lobe suspicious for atypical pneumonia such as COVID. With further questioning he does endorse fatigue and generalized malaise as well as decrease
--- NOTE | 2021-09-28 14:00 | PM.IMPN ---
Progress Note: A&P Assessment and Plan (1) Abdominal pain: Code(s): R10.9 - Unspecified abdominal pain Status: Acute Assessment and Plan: CT of the abdomen pelvis shows chronic pancreatitis with no acute inflammation Lipase elevate 1449 upon admission Lipase today 812/1930 Continue fluids Continue to trend lipase IV fluids NS at 100ml/Hr Anti-emetics: Zofran 4mg IV Q4hr advanced to low fat diet GI consulted for further recommendations (2) Pancreatitis: Code(s): K85.90 - Acute pancreatitis without necrosis or infection, unspecified Status: Acute Assessment and Plan: See above (3) Pulmonary nodules: Code(s): R91.8 - Other nonspecific abnormal finding of lung field Status: Acute Assessment and Plan: Found on the CT Scheduled for a PET scan outpatient (4) Chronic anemia: Code(s): D64.9 - Anemia, unspecified Status: Acute Assessment and Plan: H/H stable upon admission Continue to trend Anemia labs from Aug: Iron 58, TIBC 215, % sat 27, Ferritin 549 B12 468 and folate pending Supplement as indicated (5) Hypertension: Code(s): I10 - Essential (primary) hypertension Status: Chronic Assessment and Plan: 130/55 current Metoprolol 100mg PO daily, HCTZ 25mg PO daily Trend BP Adjust therapy as indicated (6) COVID-19: Code(s): U07.1 - COVID-19 Status: Acute Assessment and Plan: Covid PCR positive, however stated that he was positive 3 weeks ago Vaccinated X 2 with Maderna On room air No indication for remdesivir or Decadron SPO2 95-100% Continue to trend Inflammatory markers: Ferritin 699, CRP 7.6, LDH 392 Could check d.dimer if indicated Lovenox 40mg SubQ Daily Time Spent With Patient Time with patient: Greater than 35 minutes Subjective Date/time seen: 09/28/21 1400 Interval history: Date/Time: 09/26/21 13:15 Narrative: This is a 76-year-old male with hypertension and prostate cancer status post prostatectomy who presented to the emergency department earlier today for evaluation of abdominal pain. He was recently hospitalized from 08/31/2021 through 09/04/2021 with abdominal pain, found to have elevated LFTs with ductal dilatation and evidence of choledocholithiasis on MRCP. The stone must have passed as only sludge was noted on ERCP. Additionally he was found to have pulmonary nodules on imaging concerning for metastatic disease and it sounds as though he has an upcoming PET-CT scan as an outpatient for further evaluation. In any event he has felt pretty good since discharge though over the last 5 days he has once again started to have abdominal discomfort. He describes a sharp, stabbing, and knife-like pain in the epigastric region radiating to the umbilicus. The pain is fleeting and self-limited, typically lasting anywhere between 2 to 10 seconds. Food does seem to make it worse and he has not had anything to eat or drink for the last 24 hours. He was found to have an elevated lipase and a subsequent CT of the abdomen and pelvis showed calcification of the pancreas consistent with chronic pancreatitis though no acute inflammation. The visualized lung bases showed new ground-glass opacities in the lower lobe suspicious for atypical pneumonia such as COVID. With further questioning he does endorse fatigue and generalized malaise as well as decreased appetite. He denies fever, chills, sweats, headache, sinus congestion, rhinorrhea, otalgia, odynophagia, body aches, shortness of breath, cough, nausea, vomiting, and diarrhea. He lives at home alone and denies sick contacts. Date/Time 09/27/21 9445 Patient is really not ok today. He keep talking about being very depressed and that he has really been down since his . He also stated that he is weak and that he is very tired of being sick. He denies pain, chest pain, shor
[2021-09-28 15:14] LABS: Lipase 1930 U/L (23-300)
[2021-09-28 15:30] VITALS: BMI 25.0
[2021-09-28] MEDS: HYDROcodone/acetaminophen (*CRX) 5-325 MG TABLET 1 TAB PO (16:01)
[2021-09-28] MEDS: ONDANSETRON INJ 4 MG/2 ML VIAL IV PUSH ×2 (16:01→20:24)
[2021-09-28] MEDS: MORPHINE SULFATE (*CRX) 4 MG/ML INJ IV PUSH (20:24)
[2021-09-28 22:00] VITALS: BP 111/32; PULSE 68; RESP 16; TEMP 36.8; O2SAT 98
[2021-09-29] MEDS: SODIUM CHLORIDE 0.9% IV 1,000 ML 125 ML IV CONT ×2 (02:30→14:03)
[2021-09-29 06:00] VITALS: BP 133/59; PULSE 56; RESP 16; TEMP 36.3; O2SAT 95
[2021-09-29 06:22] LABS: Basophils Percent Auto 0.4 % (0.2-1.2); Eosinophils Absolute Auto 0.2 K/mm3 (0-0.3); Eosinophils Percent Auto 2.7 % (0-4.4); Hematocrit 27.4 % (42.0-52.0); Immature Granulocyte Absolute 0.03 K/mm3 (0.00-0.031); Immature Granulocyte Percent A 0.4 % (0-0.5); Lymphocytes Absolute Auto 1.68 K/mm3 (0.9-3.2); Lymphocytes Percent Auto 22.4 % (18.3-44.2); Mean Corpuscular HGB Conc 32.8 g/dl (32-36); Mean Corpuscular Hemoglobin 21.7 pg (26-34); Mean Platelet Volume 10.6 fl (7.4-10.4); Monocytes Absolute Auto 0.8 K/mm3 (0.1-0.6); Monocytes Percent Auto 10.8 % (2.6-8.5); Neutrophils Absolute Auto 4.7 K/mm3 (1.3-6.7); Neutrophils Percent Auto 63.3 % (45.5-73.1); Platelet Count Result 225 k/mm3 (150-375); Red Blood Count 4.15 M/mm3 (4.6-6.20); Red Cell Distribution Width 14.6 % (11.5-14.5); White Blood Count 7.5 K/mm3 (4.5-10.0)
[2021-09-29 06:32] LABS: Alanine Aminotransferase 59 U/L (4-50); Albumin Level 2.8 g/dL (3.5-5.1); Alkaline Phosphatase 172 U/L (38-126); Anion Gap 2 mmol/L (8-16); Aspartate Amino Transferase 80 U/L (17-59); Bilirubin,Total 0.7 mg/dL (0.2-1.3); Blood Urea Nitrogen 7 mg/dL (9-20); Calcium 7.9 mg/dL (8.4-10.2); Carbon Dioxide 28 mmol/L (22-30); Chloride 100 mmol/L (98-107); Estimated CRCL calculation 80 ml/min; Estimated Glomerular Filt Rate > 60; Glucose 99 mg/dL (65-110); Magnesium 1.7 mg/dL (1.6-2.3); Potassium 3.7 mmol/L (3.4-5.0); Sodium 130 mmol/L (137-145)
--- NOTE | 2021-09-29 07:15 | PM.IMPN ---
Progress Note: A&P Assessment and Plan (1) Abdominal pain: Code(s): R10.9 - Unspecified abdominal pain Status: Acute Assessment and Plan: CT of the abdomen pelvis shows chronic pancreatitis with no acute inflammation Lipase elevate 1449 upon admission Lipase today 3340 Continue fluids Continue to trend lipase IV fluids NS at 100ml/Hr Anti-emetics: Zofran 4mg IV Q4hr low fat diet, decrease to clear liquids GI consulted for further recommendations (2) Pancreatitis: Code(s): K85.90 - Acute pancreatitis without necrosis or infection, unspecified Status: Acute Assessment and Plan: See above (3) Pulmonary nodules: Code(s): R91.8 - Other nonspecific abnormal finding of lung field Status: Acute Assessment and Plan: Found on the CT Scheduled for a PET scan outpatient Lung biopsy ordered Consult Dr. Pfeiffer (4) Chronic anemia: Code(s): D64.9 - Anemia, unspecified Status: Acute Assessment and Plan: H/H stable upon admission Continue to trend Anemia labs from Aug: Iron 58, TIBC 215, % sat 27, Ferritin 549 B12 468 and folate pending Supplement as indicated (5) Hypertension: Code(s): I10 - Essential (primary) hypertension Status: Chronic Assessment and Plan: 133/59 current Metoprolol 100mg PO daily, HCTZ 25mg PO daily Trend BP Adjust therapy as indicated (6) COVID-19: Code(s): U07.1 - COVID-19 Status: Acute Assessment and Plan: Covid PCR positive, however stated that he was positive 3 weeks ago Vaccinated X 2 with Maderna On room air No indication for remdesivir or Decadron SPO2 95-100% Continue to trend Inflammatory markers: Ferritin 699, CRP 7.6, LDH 392 Could check d.dimer if indicated Lovenox 40mg SubQ Daily (7) Elevated liver enzymes: Code(s): R74.8 - Abnormal levels of other serum enzymes Status: Acute Assessment and Plan: AST/ALT 80/59 ALk Phos 172 MRCP performed yesterday which did not indicate any blockage or stone Continue to trend GI consulted Time Spent With Patient Time with patient: Greater than 35 minutes Subjective Date/time seen: 09/29/21 0715 Interval history: Date/Time: 09/26/21 13:15 Narrative: This is a 76-year-old male with hypertension and prostate cancer status post prostatectomy who presented to the emergency department earlier today for evaluation of abdominal pain. He was recently hospitalized from 08/31/2021 through 09/04/2021 with abdominal pain, found to have elevated LFTs with ductal dilatation and evidence of choledocholithiasis on MRCP. The stone must have passed as only sludge was noted on ERCP. Additionally he was found to have pulmonary nodules on imaging concerning for metastatic disease and it sounds as though he has an upcoming PET-CT scan as an outpatient for further evaluation. In any event he has felt pretty good since discharge though over the last 5 days he has once again started to have abdominal discomfort. He describes a sharp, stabbing, and knife-like pain in the epigastric region radiating to the umbilicus. The pain is fleeting and self-limited, typically lasting anywhere between 2 to 10 seconds. Food does seem to make it worse and he has not had anything to eat or drink for the last 24 hours. He was found to have an elevated lipase and a subsequent CT of the abdomen and pelvis showed calcification of the pancreas consistent with chronic pancreatitis though no acute inflammation. The visualized lung bases showed new ground-glass opacities in the lower lobe suspicious for atypical pneumonia such as COVID. With further questioning he does endorse fatigue and generalized malaise as well as decreased appetite. He denies fever, chills, sweats, headache, sinus congestion, rhinorrhea, otalgia, odynophagia, body aches, shortness of breath, cough, nausea,
--- NOTE | 2021-09-29 07:15 | P.PNIM_ITS ---
Progress Note: A&P Assessment and Plan (1) Abdominal pain: Code(s): R10.9 - Unspecified abdominal pain Status: Acute Assessment and Plan: * CT of the abdomen pelvis shows chronic pancreatitis with no acute inflammation * Lipase elevate 1449 upon admission * Lipase today 3340 * Continue fluids * Continue to trend lipase * IV fluids NS at 100ml/Hr * Anti-emetics: Zofran 4mg IV Q4hr * low fat diet, decrease to clear liquids * GI consulted for further recommendations (2) Pancreatitis: Code(s): K85.90 - Acute pancreatitis without necrosis or infection, unspecified Status: Acute Assessment and Plan: * See above (3) Pulmonary nodules: Code(s): R91.8 - Other nonspecific abnormal finding of lung field Status: Acute Assessment and Plan: * Found on the CT * Scheduled for a PET scan outpatient * Lung biopsy ordered * Consult Dr. Pfeiffer (4) Chronic anemia: Code(s): D64.9 - Anemia, unspecified Status: Acute Assessment and Plan: * H/H stable upon admission * Continue to trend * Anemia labs from Aug: Iron 58, TIBC 215, % sat 27, Ferritin 549 * B12 468 and folate pending * Supplement as indicated (5) Hypertension: Code(s): I10 - Essential (primary) hypertension Status: Chronic Assessment and Plan: * 133/59 current * Metoprolol 100mg PO daily, HCTZ 25mg PO daily * Trend BP * Adjust therapy as indicated (6) COVID-19: Code(s): U07.1 - COVID-19 Status: Acute Assessment and Plan: * Covid PCR positive, however stated that he was positive 3 weeks ago * Vaccinated X 2 with Maderna * On room air * No indication for remdesivir or Decadron * SPO2 95-100% * Continue to trend * Inflammatory markers: Ferritin 699, CRP 7.6, LDH 392 * Could check d.dimer if indicated * Lovenox 40mg SubQ Daily (7) Elevated liver enzymes: Code(s): R74.8 - Abnormal levels of other serum enzymes Status: Acute Assessment and Plan: * AST/ALT 80/59 ALk Phos 172 * MRCP performed yesterday which did not indicate any blockage or stone * Continue to trend * GI consulted Time Spent With Patient Time with patient: Greater than 35 minutes Subjective Date/time seen: 09/29/21 0715 Interval history: Date/Time: 09/26/21 13:15 Narrative: This is a 76-year-old male with hypertension and prostate cancer status post prostatectomy who presented to the emergency department earlier today for evaluation of abdominal pain. He was recently hospitalized from 08/31/2021 through 09/04/2021 with abdominal pain, found to have elevated LFTs with ductal dilatation and evidence of choledocholithiasis on MRCP. The stone must have passed as only sludge was noted on ERCP. Additionally he was found to have pulmonary nodules on imaging concerning for metastatic disease and it sounds as though he has an upcoming PET-CT scan as an outpatient for further evaluation. In any event he has felt pretty good since discharge though over the last 5 days he has once again started to have abdominal discomfort. He describes a sharp, stabbing, and knife-like pain in the epigastric region radiating to the umbilicus. The pain is fleeting and self-limited, typically lasting anywhere between 2 to 10 seconds. Food does seem to make it worse and he has not had anything to eat or drink for the last 24 hours. He was found to have an
[2021-09-29 08:40] LABS: Lipase 3340 U/L (23-300)
[2021-09-29] MEDS: ENOXAPARIN 40 MG/0.4 ML SYRINGE SUB-Q (08:46)
[2021-09-29 08:47] VITALS: PULSE 60
[2021-09-29] MEDS: hydroCHLOROthiazide 25 MG TABLET PO (08:47)
[2021-09-29] MEDS: PANTOPRAZOLE 40 MG TABLET PO (08:47)
[2021-09-29] MEDS: OLMESARTAN MEDOXOMIL 20 MG TABLET 40 MG PO (08:47)
[2021-09-29] MEDS: METOPROLOL SUCCINATE EXT REL 100 MG TABCR PO (08:47)
[2021-09-29] MEDS: CITALOPRAM HYDROBROMIDE 10 MG TABLET 40 MG PO (08:47)
--- NOTE | 2021-09-29 10:02 | WPDGIPROGNO ---
Progress Note: A&P Assessment and Plan (1) Abdominal pain: Code(s): R10.9 - Unspecified abdominal pain Status: Acute Assessment and Plan: Patient with recurrent abdominal pain. It appears to correlate with elevated lipase and LFTs consistent with pancreatitis. Currently resolved this morning. (2) Pancreatitis: Code(s): K85.90 - Acute pancreatitis without necrosis or infection, unspecified Status: Acute Assessment and Plan: Patient with persistent intermittent pancreatitis. Likely exacerbated by fatty meal yesterday. Currently pain free. Plan to monitor LFTs and lipase another day or 2. Low-fat diet encouraged. It appears as though there are no residual stones in his common duct after sphincterotomy common bile duct clearance and a normal MRCP yesterday. I am somewhat concerned this is related to lesions seen in his lung. Perhaps we should move forward with pulmonary workup. (3) Chronic anemia: Code(s): D64.9 - Anemia, unspecified Status: Acute Assessment and Plan: Patient with chronic microcytic anemia. Iron indices have suggested chronic disease. I suspect this is related to his pancreatitis and pulmonary disease. (4) Pulmonary nodules: Code(s): R91.8 - Other nonspecific abnormal finding of lung field Status: Acute Assessment and Plan: Pulmonary nodules diffusely throughout the lung described by Radiology is suspicious for metastatic disease. I understand a PET scan is pending. We may need to pursue this sooner rather than later. Subjective Date/time seen: 09/29/21 10:02 Patient alert and comfortable at present. Had abdominal pain yesterday after eating roast beef. States it was fatty. Lab tests reveal a bump in his lipase and LFT subsequently. This morning patient feels normal. He denies any abdominal pain. He has been eating once again without difficulty. No pain reported. Review of Systems Review of Systems: All systems reviewed & are unremarkable except as noted in HPI and below Exam Narrative: Physical exam reveals patient be alert. Vital signs stable. HEENT exam is unremarkable. Patient is anicteric. Lungs are clear to auscultation and percussion. Heart is without murmur or extra sounds. Abdominal exam bowel sounds present soft nontender with no organomegaly. Objective Data Vital Signs Vital Signs: Vital Signs - 24 hr 09/28/21 14:00 09/28/21 22:00 09/29/21 06:00 Temperature 97.9 F 98.2 F 97.3 F L Pulse Rate 64 68 56 L Respiratory Rate Blood Pressure 133/67 111/32 L 133/59 L Pulse Oximetry 97 98 95 09/29/21 08:47 Temperature Pulse Rate 60 Respiratory Rate Blood Pressure Pulse Oximetry Intake/Output Intake/Output: Intake & Output 09/26/21 09/27/21 09/28/21 09/29/21 23:59 23:59 23:59 23:59 Intake Total 1999 1360 3980 1440 Balance 1999 1360 3980 1440 Meds/Results Medications: Active Medications Generic Name Dose Route Start Last Admin Trade Name Freq PRN Reason Stop Dose Admin Acetaminophen 650 mg 09/26/21 20:11 09/27/21 23:50 Acetaminophen 325 Mg Tablet PO 650 mg Q6H PRN Administration Mild Pain (1-3) or Fever Hydrocodone Bitart/Acetaminophen 1 tab 09/26/21 20:11 09/28/21 16:01 Hydrocodone/Acetaminophen (*Crx) 5-325 Mg Tablet PO 1 tab Q6H PRN Administration Pain Rated 4-6 Citalopram Hydrobromide 40 mg 09/27/21 09:00 09/29/21 08:47 Citalopram Hydrobromide 10 Mg Tablet PO 40 mg DAILY COLEEN Administration Enoxaparin Sodium 40 mg 09/27/21 09:00 09/29/21 08:46 Enoxaparin 40 Mg/0.4 Ml Syringe SUB-Q 40 mg DAILY COLEEN Administration Hydrochlorothiazide 25 mg 09/27/21 09:00 09/29/21 08:47 Hydrochlorothiazide 25 Mg Tablet PO 25 mg QAM COLEEN Administration Sodium Chloride 1,000 mls @ 100 mls/hr 09/26/21 12:35 09/29/21 02:30 Normal Saline Iv IV CONT 125 mls/hr .Q10H COLEEN Administration Metoprolol Succinate 1
[2021-09-29 11:27] LABS: Alanine Aminotransferase 61 U/L (4-50); Albumin Level 2.8 g/dL (3.5-5.1); Alkaline Phosphatase 172 U/L (38-126); Aspartate Amino Transferase 80 U/L (17-59); Bilirubin,Total 0.7 mg/dL (0.2-1.3)
[2021-09-29] MEDS: HYDROcodone/acetaminophen (*CRX) 5-325 MG TABLET 1 TAB PO (11:39)
[2021-09-29 12:20] LABS: Folic Acid 9.3 ng/mL (2.76->20)
[2021-09-29 14:32] VITALS: BP 114/55; PULSE 50; RESP 16; TEMP 36.1; O2SAT 98
[2021-09-29] MEDS: traZODone HCL 50 MG TABLET PO (21:48)
[2021-09-29 22:00] VITALS: BP 144/64; PULSE 70; RESP 18; TEMP 37.3; O2SAT 98
[2021-09-30] MEDS: SODIUM CHLORIDE 0.9% IV 1,000 ML 125 ML IV CONT ×3 (03:01→21:00)
[2021-09-30 06:00] VITALS: BP 149/75; PULSE 60; RESP 16; TEMP 36.5; O2SAT 97
[2021-09-30 06:46] LABS: Basophils Percent Auto 0.5 % (0.2-1.2); Eosinophils Absolute Auto 0.2 K/mm3 (0-0.3); Eosinophils Percent Auto 3.1 % (0-4.4); Hematocrit 28.9 % (42.0-52.0); Hemoglobin 9.4 g/dL (14.0-18.0); Immature Granulocyte Absolute 0.04 K/mm3 (0.00-0.031); Immature Granulocyte Percent A 0.7 % (0-0.5); Lymphocytes Absolute Auto 1.55 K/mm3 (0.9-3.2); Lymphocytes Percent Auto 26.5 % (18.3-44.2); Mean Corpuscular HGB Conc 32.5 g/dl (32-36); Mean Corpuscular Hemoglobin 21.1 pg (26-34); Mean Corpuscular Volume 64.8 fl (80-100); Mean Platelet Volume 10.8 fl (7.4-10.4); Monocytes Absolute Auto 0.6 K/mm3 (0.1-0.6); Monocytes Percent Auto 9.4 % (2.6-8.5); Neutrophils Absolute Auto 3.5 K/mm3 (1.3-6.7); Neutrophils Percent Auto 59.8 % (45.5-73.1); Platelet Count Result 270 k/mm3 (150-375); Red Blood Count 4.46 M/mm3 (4.6-6.20); Red Cell Distribution Width 14.5 % (11.5-14.5); White Blood Count 5.9 K/mm3 (4.5-10.0)
[2021-09-30 06:58] LABS: Alanine Aminotransferase 56 U/L (4-50); Albumin Level 2.8 g/dL (3.5-5.1); Alkaline Phosphatase 201 U/L (38-126); Anion Gap 6 mmol/L (8-16); Aspartate Amino Transferase 54 U/L (17-59); Bilirubin,Total 0.7 mg/dL (0.2-1.3); Blood Urea Nitrogen 4 mg/dL (9-20); Calcium 8.2 mg/dL (8.4-10.2); Carbon Dioxide 27 mmol/L (22-30); Chloride 103 mmol/L (98-107); Estimated CRCL calculation 80 ml/min; Estimated Glomerular Filt Rate > 60; Glucose 93 mg/dL (65-110); Magnesium 1.8 mg/dL (1.6-2.3); Potassium 3.2 mmol/L (3.4-5.0); Sodium 136 mmol/L (137-145)
[2021-09-30 08:00] VITALS: PULSE 61; RESP 16; O2SAT 99
[2021-09-30 08:06] LABS: Carcinoembryonic Antigen 0.6 ng/mL (0.0-3.0)
[2021-09-30 08:28] LABS: Lipase 2026 U/L (23-300)
--- NOTE | 2021-09-30 08:30 | PM.IMPN ---
Progress Note: A&P Assessment and Plan (1) Abdominal pain: Code(s): R10.9 - Unspecified abdominal pain Status: Acute Assessment and Plan: CT of the abdomen pelvis shows chronic pancreatitis with no acute inflammation Lipase elevate 1449 upon admission Lipase today 2025 Continue fluids Continue to trend lipase IV fluids NS at 100ml/Hr Anti-emetics: Zofran 4mg IV Q4hr low fat diet, decrease to clear liquids GI consulted for further recommendations AST/ALT 54/56 alk phos 201 (2) Pancreatitis: Code(s): K85.90 - Acute pancreatitis without necrosis or infection, unspecified Status: Acute Assessment and Plan: See above (3) Pulmonary nodules: Code(s): R91.8 - Other nonspecific abnormal finding of lung field Status: Acute Assessment and Plan: Found on the CT Scheduled for a PET scan outpatient Lung biopsy ordered Consult Dr. Kentrell GIBBONS 0.6 (4) Chronic anemia: Code(s): D64.9 - Anemia, unspecified Status: Acute Assessment and Plan: H/H stable upon admission H/H 9.4/28.9 Continue to trend Anemia labs from Aug: Iron 58, TIBC 215, % sat 27, Ferritin 549 B12 468 and folate pending Supplement as indicated (5) Hypertension: Code(s): I10 - Essential (primary) hypertension Status: Chronic Assessment and Plan: 149/75 current Metoprolol 100mg PO daily, HCTZ 25mg PO daily Trend BP Adjust therapy as indicated (6) COVID-19: Code(s): U07.1 - COVID-19 Status: Acute Assessment and Plan: Covid PCR positive, however stated that he was positive 3 weeks ago Vaccinated X 2 with Maderna On room air No indication for remdesivir or Decadron SPO2 95-100% Continue to trend Inflammatory markers: Ferritin 699, CRP 7.6, LDH 392, seems stable Could check d.dimer if indicated Lovenox 40mg SubQ Daily (7) Elevated liver enzymes: Code(s): R74.8 - Abnormal levels of other serum enzymes Status: Acute Assessment and Plan: AST/ALT 54/56 ALk Phos 201 MRCP performed yesterday which did not indicate any blockage or stone Continue to trend GI consulted thank you for your help Time Spent With Patient Time with patient: Greater than 35 minutes Subjective Date/time seen: 09/30/21 08:30 Interval history: Date/Time: 09/26/21 13:15 Narrative: This is a 76-year-old male with hypertension and prostate cancer status post prostatectomy who presented to the emergency department earlier today for evaluation of abdominal pain. He was recently hospitalized from 08/31/2021 through 09/04/2021 with abdominal pain, found to have elevated LFTs with ductal dilatation and evidence of choledocholithiasis on MRCP. The stone must have passed as only sludge was noted on ERCP. Additionally he was found to have pulmonary nodules on imaging concerning for metastatic disease and it sounds as though he has an upcoming PET-CT scan as an outpatient for further evaluation. In any event he has felt pretty good since discharge though over the last 5 days he has once again started to have abdominal discomfort. He describes a sharp, stabbing, and knife-like pain in the epigastric region radiating to the umbilicus. The pain is fleeting and self-limited, typically lasting anywhere between 2 to 10 seconds. Food does seem to make it worse and he has not had anything to eat or drink for the last 24 hours. He was found to have an elevated lipase and a subsequent CT of the abdomen and pelvis showed calcification of the pancreas consistent with chronic pancreatitis though no acute inflammation. The visualized lung bases showed new ground-glass opacities in the lower lobe suspicious for atypical pneumonia such as COVID. With further questioning he does endorse fatigue and generalized malaise as well as decreased appetite. He denies fever, chills, sweats, headache, sinus
--- NOTE | 2021-09-30 08:30 | P.PNIM_ITS ---
Progress Note: A&P Assessment and Plan (1) Abdominal pain: Code(s): R10.9 - Unspecified abdominal pain Status: Acute Assessment and Plan: * CT of the abdomen pelvis shows chronic pancreatitis with no acute inflammation * Lipase elevate 1449 upon admission * Lipase today 2025 * Continue fluids * Continue to trend lipase * IV fluids NS at 100ml/Hr * Anti-emetics: Zofran 4mg IV Q4hr * low fat diet, decrease to clear liquids * GI consulted for further recommendations * AST/ALT 54/56 alk phos 201 (2) Pancreatitis: Code(s): K85.90 - Acute pancreatitis without necrosis or infection, unspecified Status: Acute Assessment and Plan: * See above (3) Pulmonary nodules: Code(s): R91.8 - Other nonspecific abnormal finding of lung field Status: Acute Assessment and Plan: * Found on the CT * Scheduled for a PET scan outpatient * Lung biopsy ordered * Consult Dr. Pfeiffer * 0.6 (4) Chronic anemia: Code(s): D64.9 - Anemia, unspecified Status: Acute Assessment and Plan: * H/H stable upon admission * H/H 9.4/28.9 * Continue to trend * Anemia labs from Aug: Iron 58, TIBC 215, % sat 27, Ferritin 549 * B12 468 and folate pending * Supplement as indicated (5) Hypertension: Code(s): I10 - Essential (primary) hypertension Status: Chronic Assessment and Plan: * 149/75 current * Metoprolol 100mg PO daily, HCTZ 25mg PO daily * Trend BP * Adjust therapy as indicated (6) COVID-19: Code(s): U07.1 - COVID-19 Status: Acute Assessment and Plan: * Covid PCR positive, however stated that he was positive 3 weeks ago * Vaccinated X 2 with Maderna * On room air * No indication for remdesivir or Decadron * SPO2 95-100% * Continue to trend * Inflammatory markers: Ferritin 699, CRP 7.6, LDH 392, seems stable * Could check d.dimer if indicated * Lovenox 40mg SubQ Daily (7) Elevated liver enzymes: Code(s): R74.8 - Abnormal levels of other serum enzymes Status: Acute Assessment and Plan: * AST/ALT 54/56 ALk Phos 201 * MRCP performed yesterday which did not indicate any blockage or stone * Continue to trend * GI consulted thank you for your help Time Spent With Patient Time with patient: Greater than 35 minutes Subjective Date/time seen: 09/30/21 08:30 Interval history: Date/Time: 09/26/21 13:15 Narrative: This is a 76-year-old male with hypertension and prostate cancer status post prostatectomy who presented to the emergency department earlier today for evaluation of abdominal pain. He was recently hospitalized from 08/31/2021 through 09/04/2021 with abdominal pain, found to have elevated LFTs with ductal dilatation and evidence of choledocholithiasis on MRCP. The stone must have passed as only sludge was noted on ERCP. Additionally he was found to have pulmonary nodules on imaging concerning for metastatic disease and it sounds as though he has an upcoming PET-CT scan as an outpatient for further evaluation. In any event he has felt pretty good since discharge though over the last 5 days he has once again started to have abdominal discomfort. He describes a sharp, stabbing, and knife-like pain in the epigastric region radiating to the umbilicus. The pain is fleeting and self-limited, typically lasting anywhere between 2 to 10 seconds. Food does seem to m
[2021-09-30 08:31] VITALS: PULSE 60
[2021-09-30] MEDS: ENOXAPARIN 40 MG/0.4 ML SYRINGE SUB-Q (08:31)
[2021-09-30] MEDS: METOPROLOL SUCCINATE EXT REL 100 MG TABCR PO (08:31)
[2021-09-30] MEDS: hydroCHLOROthiazide 25 MG TABLET PO (08:31)
[2021-09-30] MEDS: PANTOPRAZOLE 40 MG TABLET PO (08:31)
[2021-09-30] MEDS: CITALOPRAM HYDROBROMIDE 10 MG TABLET 40 MG PO (08:31)
[2021-09-30] MEDS: OLMESARTAN MEDOXOMIL 20 MG TABLET 40 MG PO (08:32)
--- NOTE | 2021-09-30 09:44 | WPDGIPROGNO ---
Progress Note: A&P Assessment and Plan (1) Pulmonary nodules: Code(s): R91.8 - Other nonspecific abnormal finding of lung field Status: Acute Assessment and Plan: Patient with pulmonary nodules, Radiology suggest these are consistent with metastatic disease. Pulmonary follow-up advised. Ultimately biopsied these may be required. (2) Pancreatitis: Code(s): K85.90 - Acute pancreatitis without necrosis or infection, unspecified Status: Acute Assessment and Plan: Patient with pancreatitis had admission. Lipase remains elevated. Patient had recurrent pain with fatty food diet. Will re-attempt advancing diet at this time. Patient had an ERCP with sphincterotomy by Dr. Watson recently. If patient remains hospitalized we will ask Dr. Watson for follow-up. MRCP revealed no residual common duct stones. (3) Chronic anemia: Code(s): D64.9 - Anemia, unspecified Status: Acute Assessment and Plan: Patient with microcytic anemia. Previously felt to be anemia of chronic disease. Will repeat iron studies during this hospital stay. Subjective Date/time seen: 09/30/21 09:44 Patient feels good this morning. Denies abdominal pain. Tolerating liquid diet without difficulty. Denies any shortness of breath or chest pain. Review of Systems Review of Systems: All systems reviewed & are unremarkable except as noted in HPI and below Exam Narrative: Physical exam reveals patient be alert comfortable. Vital signs stable. HEENT exam reveals no icterus. Lungs are clear. Heart without murmur. Abdomen bowel sounds present soft nontender with no organomegaly. Objective Data Vital Signs Vital Signs: Vital Signs - 24 hr 09/29/21 14:32 09/29/21 22:00 09/30/21 06:00 Temperature 96.9 F L 99.2 F 97.7 F Pulse Rate 50 L 70 60 Respiratory Rate 16 18 16 Blood Pressure 114/55 L 144/64 H 149/75 H Pulse Oximetry 98 98 97 09/30/21 08:31 Temperature Pulse Rate 60 Respiratory Rate Blood Pressure Pulse Oximetry Intake/Output Intake/Output: Intake & Output 09/27/21 09/28/21 09/29/21 09/30/21 23:59 23:59 23:59 23:59 Intake Total 1360 3980 4050 662 Balance 1360 3980 4050 662 Meds/Results Medications: Active Medications Generic Name Dose Route Start Last Admin Trade Name Freq PRN Reason Stop Dose Admin Acetaminophen 650 mg 09/26/21 20:11 09/27/21 23:50 Acetaminophen 325 Mg Tablet PO 650 mg Q6H PRN Administration Mild Pain (1-3) or Fever Hydrocodone Bitart/Acetaminophen 1 tab 09/26/21 20:11 09/29/21 11:39 Hydrocodone/Acetaminophen (*Crx) 5-325 Mg Tablet PO 1 tab Q6H PRN Administration Pain Rated 4-6 Citalopram Hydrobromide 40 mg 09/27/21 09:00 09/30/21 08:31 Citalopram Hydrobromide 10 Mg Tablet PO 40 mg DAILY COLEEN Administration Enoxaparin Sodium 40 mg 09/27/21 09:00 09/30/21 08:31 Enoxaparin 40 Mg/0.4 Ml Syringe SUB-Q 40 mg DAILY COLEEN Administration Hydrochlorothiazide 25 mg 09/27/21 09:00 09/30/21 08:31 Hydrochlorothiazide 25 Mg Tablet PO 25 mg QAM COLEEN Administration Sodium Chloride 1,000 mls @ 100 mls/hr 09/26/21 12:35 09/30/21 03:01 Normal Saline Iv IV CONT 125 mls/hr .Q10H COLEEN Administration Metoprolol Succinate 100 mg 09/27/21 09:00 09/30/21 08:31 Metoprolol Succinate Ext Rel 100 Mg Tabcr PO 100 mg DAILY COLEEN Administration Morphine Sulfate 4 mg 09/26/21 12:34 09/28/21 20:24 Morphine Sulfate (*Crx) 4 Mg/Ml Inj IV PUSH 4 mg Q2H PRN Administration Pain Rated 7-10 Olmesartan 40 mg 09/27/21 09:00 09/30/21 08:32 Olmesartan Medoxomil 20 Mg Tablet PO 40 mg QAM COLEEN Administration Ondansetron HCl 4 mg 09/26/21 12:34 09/28/21 20:24 Ondansetron Inj 4 Mg/2 Ml Vial IV PUSH 4 mg Q4H PRN Administration Nausea Pantoprazole Sodium 40 mg 09/27/21 09:00 09/30/21 08:31 Pantoprazole 40 Mg Tablet PO 40 mg QAM COLEEN Administratio
[2021-09-30] MEDS: POTASSIUM CHLORIDE 20 MEQ TABLET 40 MEQ PO (10:29)
[2021-09-30 14:00] VITALS: BP 124/65; PULSE 61; RESP 16; TEMP 36.7; O2SAT 99
[2021-09-30] MEDS: traZODone HCL 50 MG TABLET PO (20:58)
[2021-09-30] MEDS: MELATONIN 5 MG TABLET PO (20:58)
[2021-09-30 22:00] VITALS: BP 126/56; PULSE 54; RESP 16; TEMP 36.4; O2SAT 96
[2021-10-01 05:21] LABS: Basophils Percent Auto 0.7 % (0.2-1.2); Eosinophils Absolute Auto 0.2 K/mm3 (0-0.3); Eosinophils Percent Auto 3.4 % (0-4.4); Hemoglobin 9.1 g/dL (14.0-18.0); Immature Granulocyte Absolute 0.02 K/mm3 (0.00-0.031); Immature Granulocyte Percent A 0.3 % (0-0.5); Lymphocytes Absolute Auto 1.86 K/mm3 (0.9-3.2); Lymphocytes Percent Auto 30.2 % (18.3-44.2); Mean Corpuscular HGB Conc 32.5 g/dl (32-36); Mean Corpuscular Hemoglobin 21.3 pg (26-34); Mean Corpuscular Volume 65.6 fl (80-100); Mean Platelet Volume 10.7 fl (7.4-10.4); Monocytes Absolute Auto 0.6 K/mm3 (0.1-0.6); Monocytes Percent Auto 10.4 % (2.6-8.5); Neutrophils Absolute Auto 3.4 K/mm3 (1.3-6.7); Platelet Count Result 268 k/mm3 (150-375); Red Blood Count 4.27 M/mm3 (4.6-6.20); Red Cell Distribution Width 14.4 % (11.5-14.5); White Blood Count 6.2 K/mm3 (4.5-10.0)
[2021-10-01 05:36] LABS: Alanine Aminotransferase 42 U/L (4-50); Albumin Level 2.9 g/dL (3.5-5.1); Alkaline Phosphatase 169 U/L (38-126); Anion Gap 5 mmol/L (8-16); Aspartate Amino Transferase 35 U/L (17-59); Bilirubin,Total 0.6 mg/dL (0.2-1.3); Blood Urea Nitrogen 3 mg/dL (9-20); Calcium 8.3 mg/dL (8.4-10.2); Carbon Dioxide 24 mmol/L (22-30); Chloride 103 mmol/L (98-107); Estimated CRCL calculation 92 ml/min; Estimated Glomerular Filt Rate > 60; Glucose 99 mg/dL (65-110); Lipase 1087 U/L (23-300); Magnesium 1.8 mg/dL (1.6-2.3); Potassium 3.5 mmol/L (3.4-5.0); Sodium 132 mmol/L (137-145)
[2021-10-01] MEDS: SODIUM CHLORIDE 0.9% IV 1,000 ML 125 ML IV CONT (05:45)
[2021-10-01 06:00] VITALS: BP 141/56; PULSE 53; RESP 16; TEMP 35.9; O2SAT 97
--- NOTE | 2021-10-01 10:20 | PM.DS ---
DS: Admitting Diagnosis Discharge Date Date/time: 10/01/21 1020 Admitting Diagnosis acute on chronic pancreatitis DS: Discharge Diagnosis Discharge Diagnosis (1) Abdominal pain: Code(s): R10.9 - Unspecified abdominal pain Status: Acute Assessment and Plan: CT of the abdomen pelvis shows chronic pancreatitis with no acute inflammation Lipase elevate 1449 upon admission Lipase today 722 then up to 3340 down to 974 today Continue to trend lipase IV fluids NS at 100ml/Hr Anti-emetics: Zofran 4mg IV Q4hr advanced to low fat diet Liver enzymes elevated GI consulted for further recommendations (2) Pancreatitis: Code(s): K85.90 - Acute pancreatitis without necrosis or infection, unspecified Status: Acute Assessment and Plan: See above (3) Pulmonary nodules: Code(s): R91.8 - Other nonspecific abnormal finding of lung field Status: Acute Assessment and Plan: Found on the CT Scheduled for a PET scan outpatient Lung biopsy ordered but cancelled but needs to wait 2 weeks to have this procedure Consult Dr. Kentrell GIBBONS 0.6 (4) Chronic anemia: Code(s): D64.9 - Anemia, unspecified Status: Acute Assessment and Plan: H/H stable upon admission Continue to trend Anemia labs from Aug: Iron 58, TIBC 215, % sat 27, Ferritin 549 B12 468 and folate pending Supplement as indicated (5) Hypertension: Code(s): I10 - Essential (primary) hypertension Status: Chronic Assessment and Plan: 149/75 current Metoprolol 100mg PO daily, HCTZ 25mg PO daily Trend BP Adjust therapy as indicated (6) COVID-19: Code(s): U07.1 - COVID-19 Status: Acute Assessment and Plan: Covid PCR positive, however stated that he was positive 3 weeks ago Vaccinated X 2 with Maderna On room air No indication for remdesivir or Decadron SPO2 95-100% Continue to trend Inflammatory markers: Ferritin 699, CRP 7.6, LDH 392, seems stable Could check d.dimer if indicated Lovenox 40mg SubQ Daily (7) Elevated liver enzymes: Code(s): R74.8 - Abnormal levels of other serum enzymes Status: Acute Assessment and Plan: AST/ALT 54/56 ALk Phos 201 MRCP performed yesterday which did not indicate any blockage or stone Continue to trend GI consulted thank you for your help DS: Summary Hospital Course Hospital Course: patient is a 76-year-old male with past medical history of anemia, GERD, hypertension, AFib who presented to the ED with complaints of abdominal pain. Initial labs indicated an elevated lipase of 1449 and got as high as 3340. Lipase has been trending down and is 974 today. Patient has been tolerating a low-fat diet. GI was consulted and an MRCP was performed which showed mild intrahepatic and extrahepatic bile duct dilatation status post cholecystectomy no gallstones present. CT and abdomen upon admission showed new ground-glass opacities suspicious for COVID-19. According to the patient patient was tested for COVID-19 day after discharge which was 09/05/21 which he stated came back positive. Patient denied any shortness of breath or any issues with breathing. Patient was also exhibit to have a little bit of depression since admission however today he does not have any pain in the feels little better. Patient's labs have been labile throughout his admission lipase has been up and down. Liver enzymes also elevated but has since stabilized and are normal. Patient denies chest pain, shortness of breath, weakness, fatigue, nausea, vomiting, diarrhea, constipation. Patient was little irritated today as I was late getting in the room. Patient was ready to go. Patient was counseled about eating a low-fat diet and to avoid alcohol. I also talked to the patient about staying hydrated and drinking plenty of fluids. Patient was noted to have very d
--- NOTE | 2021-10-01 10:20 | P.DS_ITS ---
DS: Admitting Diagnosis Discharge Date Date/time: 10/01/21 1020 Admitting Diagnosis acute on chronic pancreatitis DS: Discharge Diagnosis Discharge Diagnosis (1) Abdominal pain: Code(s): R10.9 - Unspecified abdominal pain Status: Acute Assessment and Plan: * CT of the abdomen pelvis shows chronic pancreatitis with no acute inflammation * Lipase elevate 1449 upon admission * Lipase today 722 then up to 3340 down to 974 today * Continue to trend lipase * IV fluids NS at 100ml/Hr * Anti-emetics: Zofran 4mg IV Q4hr * advanced to low fat diet * Liver enzymes elevated * GI consulted for further recommendations (2) Pancreatitis: Code(s): K85.90 - Acute pancreatitis without necrosis or infection, unspecified Status: Acute Assessment and Plan: * See above (3) Pulmonary nodules: Code(s): R91.8 - Other nonspecific abnormal finding of lung field Status: Acute Assessment and Plan: * Found on the CT * Scheduled for a PET scan outpatient * Lung biopsy ordered but cancelled but needs to wait 2 weeks to have this procedure * Consult Dr. Pfeiffer * 0.6 (4) Chronic anemia: Code(s): D64.9 - Anemia, unspecified Status: Acute Assessment and Plan: * H/H stable upon admission * Continue to trend * Anemia labs from Aug: Iron 58, TIBC 215, % sat 27, Ferritin 549 * B12 468 and folate pending * Supplement as indicated (5) Hypertension: Code(s): I10 - Essential (primary) hypertension Status: Chronic Assessment and Plan: * 149/75 current * Metoprolol 100mg PO daily, HCTZ 25mg PO daily * Trend BP * Adjust therapy as indicated (6) COVID-19: Code(s): U07.1 - COVID-19 Status: Acute Assessment and Plan: * Covid PCR positive, however stated that he was positive 3 weeks ago * Vaccinated X 2 with Maderna * On room air * No indication for remdesivir or Decadron * SPO2 95-100% * Continue to trend * Inflammatory markers: Ferritin 699, CRP 7.6, LDH 392, seems stable * Could check d.dimer if indicated * Lovenox 40mg SubQ Daily (7) Elevated liver enzymes: Code(s): R74.8 - Abnormal levels of other serum enzymes Status: Acute Assessment and Plan: * AST/ALT 54/56 ALk Phos 201 * MRCP performed yesterday which did not indicate any blockage or stone * Continue to trend * GI consulted thank you for your help DS: Summary Hospital Course Hospital Course: patient is a 76-year-old male with past medical history of anemia, GERD, hypertension, AFib who presented to the ED with complaints of abdominal pain. Initial labs indicated an elevated lipase of 1449 and got as high as 3340. Lipase has been trending down and is 974 today. Patient has been tolerating a low-fat diet. GI was consulted and an MRCP was performed which showed mild intrahepatic and extrahepatic bile duct dilatation status post cholecystectomy no gallstones present. CT and abdomen upon admission showed new ground-glass opacities suspicious for COVID-19. According to the patient patient was tested for COVID-19 day after discharge which was 09/05/21 which he stated came back positive. Patient denied any shortness of breath or any issues with breathing. Patient was also exhibit to have a little bit of depression since admission however today he does not have any pain in the feels little better. Patient's l
[2021-10-01] MEDS: PANTOPRAZOLE 40 MG TABLET PO (11:07)
[2021-10-01] MEDS: hydroCHLOROthiazide 25 MG TABLET PO (11:07)
[2021-10-01 11:08] VITALS: PULSE 92
[2021-10-01] MEDS: METOPROLOL SUCCINATE EXT REL 100 MG TABCR PO (11:08)
[2021-10-01] MEDS: OLMESARTAN MEDOXOMIL 20 MG TABLET 40 MG PO (11:08)
[2021-10-01] MEDS: CITALOPRAM HYDROBROMIDE 10 MG TABLET 40 MG PO (11:08)
[2021-10-01] MEDS: ENOXAPARIN 40 MG/0.4 ML SYRINGE SUB-Q (11:08)
--- NOTE | 2021-10-01 11:09 | PDONCCN ---
HPI - Date of Consult Date/Time: 10/01/21 11:09 Requesting Physician: Nathan Aguilar MD Primary Care Provider: Chalino Estrada, - Consult Narrative Reason for consult: Pulmonary nodules. Narrative: Suman Neumann is a 76 year old male with history of prostate cancer status post prostatectomy and hypertension came into the hospital with abdominal pain. During the last hospital stay labs revealed elevated liver function test and MRCP showed biliary ductal dilation with evidence of choledocholithiasis. CT abdomen and pelvis showed calcification of the pancreas consistent with chronic pancreatitis. CT scan also revealed atypical pneumonia. CT scan of also showed stable pulmonary nodules suspicious for metastatic disease measuring up to 2.2 cm in the left lower lobe. According to the patient he has pulmonary nodule for almost 10 years duration and remains stable. He has a very brief history of smoking and quit more than 50 years ago. He denies any cough and hemoptysis. No shortness of breath. His abdominal pain has improved and likely to be discharged home soon. Review of Systems - Review of Systems All systems reviewed & are unremarkable except as noted in HPI and [facility] Medical History: Medical History (Last Updated 09/26/21 @ 13:34 by Janae Ayala PA-C) Choledocholithiasis Onset Date: 08/2021 Status post ERCP on 09/03/2021. Chronic anemia Iron studies in August 2021 consistent with anemia of chronic disease. Dilated bile duct Status post ERCP on 09/03/2021 with large sphincterotomy. No stones noted, only sludge. Gastroesophageal reflux disease Hypertension Paroxysmal atrial fibrillation Prostate cancer Onset Date: 11/2004 Status post prostatectomy. Pulmonary nodules Initially noted on CT on 08/31/2021. At that time patient declined biopsy and has been following with his primary care provider. Surgical History: Surgical History (Last Reviewed 09/26/21 @ 20:07 by Janae Ayala PA-C) History of appendectomy History of cholecystectomy History of colonoscopy with polypectomy Onset Date: 12/2005 Diverticulosis, internal hemorrhoids, and 2 benign sigmoid colon polyps per Dr. Rush. History of endoscopic retrograde cholangiopancreatography Onset Date: 09/03/21 History of prostatectomy Onset Date: 11/2004 Family History: Family History (Last Reviewed 09/26/21 @ 20:07 by Janae Ayala PA-C) Sibling Parkinsons sister Brain cancer sister and brother Father Lung cancer Other Unknown family medical history - Social History Social History: Social History (Last Updated 09/26/21 @ 20:07 by Janae Ayala PA-C) Others: Spiritual care concerns: No Smoking Status: Approximate Smoking End Date: [facility] Home Medications Medication Instructions Recorded Confirmed Type citalopram 40 mg PO DAILY 08/31/21 09/26/21 History metoprolol succinate 100 mg PO DAILY 08/31/21 09/26/21 History olmesartan-hydrochlorothiazide 1 tablet PO DAILY 08/31/21 09/26/21 History omeprazole 20 mg PO DAILY 08/31/21 09/26/21 History trazodone 50 mg PO HS PRN 08/31/21 09/26/21 History Allergies Allergy/AdvReac Type Severity Reaction Status Date / Time No Known Allergies Allergy Mild Verified 09/03/21 13:01 Results - Labs CBC & Chem 7: 10/01/21 05:01 10/01/21 05:01 Labs: Short CBC 10/01/21 Range/Units 05:01 WBC 6.2 (4.5-10.0) K/mm3 Hgb 9.1 L (14.0-18.0) g/dL Hct 28.0 L (42.0-52.0) % Plt Count 268 (150-375) k/mm3 BMP 10/01/21 05:01 Sodium 132 L Potassium 3.5 Chloride 103 Carbon Dioxide 24 BUN 3 L Creatinine 0.60 L Glucose 99 Calcium 8.3 L Liver Function 10/01/21 Range/Units 05:01 Total Bilirubin 0.6 (0.2-1.3) mg/dL AST 35 (17-59) U/L ALT 42 (4-50) U/L Alkaline Phosphatase 169 H (38-126) U/L Albumin 2.9 L (3.5-5.1) g/dL Assessment and Plan
[2021-10-01 12:12] LABS: Iron 30 ug/dL (49-181)
[2021-10-01 12:22] LABS: Percent Iron Saturation 19 % (20-50)
[2021-10-01] MEDS: SODIUM CHLORIDE 0.9% IV 1,000 ML 150 ML IV CONT (13:21)
--- NOTE | 2021-10-01 13:48 | WPDGIPROGNO ---
Progress Note: A&P Assessment and Plan (1) Abdominal pain: Code(s): R10.9 - Unspecified abdominal pain Status: Acute Assessment and Plan: abdominal pain gone, will advance to low fat diet (he says that more than a day ago had regular diet and pain came back) if no more pain or nausea probably could go home (2) Pancreatitis: Code(s): K85.90 - Acute pancreatitis without necrosis or infection, unspecified Status: Acute Assessment and Plan: advance to low fat diet mrcp repeated without any new findings had ERCP during last hospitalization (3) Pulmonary nodules: Code(s): R91.8 - Other nonspecific abnormal finding of lung field Status: Acute Assessment and Plan: work up as outpatient (4) Choledocholithiasis: Onset Date: 08/2021 Code(s): K80.50 - Calculus of bile duct without cholangitis or cholecystitis without obstruction Status: Acute (5) Chronic anemia: Code(s): D64.9 - Anemia, unspecified Status: Acute Subjective Date/time seen: 10/01/21 13:48 Interval history: no more abdominal pain and he has been tolerating liquid diet, he would like to try again low fat diet. Review of Systems Review of Systems: All systems reviewed & are unremarkable except as noted in HPI and below Exam Const: General: comfortable and no acute distress HENMT: General nose exam: Normal nares present Eyes: General: appearance normal, both eyes and all related structures Neck: Neck: no JVD Resp: Auscultation: clear to auscultation bilaterally Cardio: Rate: regular rate Rhythm: regular rhythm GI: Inspection: non-distended GI Palp: Yes Soft to palpation and No Guarding due to palpation present (GI) Auscultation: normal bowel sounds Skin: General skin exam: normal color Neuro: General: gait normal Speech: normal speech Extrem: General: normal to inspection Psych: Mental Status: mental status grossly normal Objective Data Vital Signs Vital Signs: Vital Signs - 24 hr 09/30/21 14:00 09/30/21 22:00 10/01/21 06:00 Temperature 98.0 F 97.5 F L 96.7 F L Pulse Rate 61 54 L 53 L Respiratory Rate 16 16 16 Blood Pressure 124/65 126/56 L 141/56 H Pulse Oximetry 99 96 97 10/01/21 11:08 Temperature Pulse Rate 92 Respiratory Rate Blood Pressure Pulse Oximetry Intake/Output Intake/Output: Intake & Output 09/28/21 09/29/21 09/30/21 10/01/21 23:59 23:59 23:59 23:59 Intake Total 3980 4050 3642 1999 Output Total 700 Balance 3980 4050 2942 1999 Meds/Results Medications: Active Medications Generic Name Dose Route Start Last Admin Trade Name Freq PRN Reason Stop Dose Admin Acetaminophen 650 mg 09/26/21 20:11 09/27/21 23:50 Acetaminophen 325 Mg Tablet PO 650 mg Q6H PRN Administration Mild Pain (1-3) or Fever Hydrocodone Bitart/Acetaminophen 1 tab 09/26/21 20:11 09/29/21 11:39 Hydrocodone/Acetaminophen (*Crx) 5-325 Mg Tablet PO 1 tab Q6H PRN Administration Pain Rated 4-6 Alprazolam 0.125 mg 09/30/21 13:56 Alprazolam (*Crx) 0.125 Mg Tablet PO TID PRN Anxiety Citalopram Hydrobromide 40 mg 09/27/21 09:00 10/01/21 11:08 Citalopram Hydrobromide 10 Mg Tablet PO 40 mg DAILY COLEEN Administration Enoxaparin Sodium 40 mg 09/27/21 09:00 10/01/21 11:08 Enoxaparin 40 Mg/0.4 Ml Syringe SUB-Q 40 mg DAILY COLEEN Administration Hydrochlorothiazide 25 mg 09/27/21 09:00 10/01/21 11:07 Hydrochlorothiazide 25 Mg Tablet PO 25 mg QAM COLEEN Administration Sodium Chloride 1,000 mls @ 150 mls/hr 09/26/21 12:35 10/01/21 13:21 Normal Saline Iv IV CONT 150 mls/hr .Q6H40M COLEEN Administration Melatonin 5 mg 09/30/21 21:00 09/30/21 20:58 Melatonin 5 Mg Tablet PO 5 mg HS COLEEN Administration Metoprolol Succinate 100 mg 09/27/21 09:00 10/01/21 11:08 Metoprolol Succinate Ext Rel 100 Mg Tabcr PO 100 mg DAILY COLEEN Administration Morphine Sulfate
[2021-10-01 14:00] VITALS: BP 126/69; PULSE 60; RESP 16; TEMP 37.2; O2SAT 98
[2021-10-01 15:18] LABS: Lipase 974 U/L (23-300)
== END 2021-10-01 18:35 | disposition home or self-care (01) | DRG 438 ==
LOC: ANHED 12:37 → ANH3MEDSUR 16:19
PROVIDERS: Internal Medicine Hematology & Oncology; Physician Assistant; Admitting Provider Internal Medicine; Emergency Provider Emergency Medicine; PCP Internal Medicine; Visit Provider Nurse Practitioner
DX: K85.90 Acute pancreatitis without necrosis or infection, unspecified (principal); U07.1 COVID-19; J12.82 Pneumonia due to coronavirus disease 2019; K86.1 Other chronic pancreatitis; Z85.46 Personal history of malignant neoplasm of prostate; I10 Essential (primary) hypertension; R91.8 Other nonspecific abnormal finding of lung field; H26.9 Unspecified cataract; Z87.891 Personal history of nicotine dependence; D64.9 Anemia, unspecified; I48.0 Paroxysmal atrial fibrillation
CPT/HCPCS: 36415; 71045; 74177; 74183; 76376; 80053; 80076; 82378; 82607; 82728; 82746; 83540; 83550; 83605; 83615; 83690; 83735; 85025; 85027; 85055; 85610; 85730; 86140; 87426; 96361; 96374; 99285; A9270; A9577; C9803; G0378; J1650; J2270; J2405; J7030; Q9967

== ENCOUNTER 2022-01-10 07:21 | Outpatient (CLI) | payer MEDICARE, SELFPAY ==
--- NOTE | ~2022-01-10 | PE_ITS ---
EXAMINATION: PET skull to mid thigh DATE: 01/10/2022 09:24 INDICATION: Other nonspecific abnormal finding in lung field. Multiple lung nodules. TECHNIQUE: Blood glucose level was 109 mg/dL. 9.795 mCi of 18-fluorodeoxyglucose (18-FDG) was adminis tered i.v. Low dose computed tomography (CT) images were acquired from the base of the brain to the p roximal thighs for attenuation correction and anatomic localization. Automated exposure control was e mployed. Dose-length product (DLP) was 549 mGy-cm. Positron emission tomography (PET) images were acq uired in the same distribution. COMPARISON: Chest CT 08/31/2021 FINDINGS: Head/neck: There is increased activity in the nose, oral cavity, pharynx, and glottis without abnorma l CT cardiac, likely physiologic. There are no pathologically enlarged lymph nodes. Chest: Calcified pulmonary nodules and calcified hilar and mediastinal lymph nodes are consistent wit h old granulomatous disease. There are multiple nodules in the lungs without increased activity witho ut change in size measuring up to 2.2 cm in left lower lobe. The second largest nodule measures 2.0 c m in left lower lobe. No pleural effusion. Cardiomegaly is noted. There are coronary artery calcifica tions. No pericardial effusion. There is a 2.9 x 1.4 cm triangular mass in the anterior mediastinum w ithout increased activity, likely thymus. Abdomen/pelvis/proximal thighs: The liver and spleen are normal. There are changes of cholecystectomy . The pancreas, adrenal glands, and right kidney are normal. There is a 3 mm stone in left kidney. Th ere are no dilated loops of bowel. There are no dilated loops of bowel. There are no pathologically e nlarged lymph nodes. There is no free intraperitoneal fluid. There is no osseous malignancy. IMPRESSION: 1. Pulmonary nodules without increased activity measuring up to 2.2 cm, stable from 08/31/2021. The d ifferential diagnosis includes metastatic disease, granulomatous infection, and granulomatosis with p olyangiitis. Reviewed, dictated and finalized at location A. IMPRESSION: 1. Pulmonary nodules without increased activity measuring up to 2.2 cm, stable from 08/31/2021. The differential diagnosis includes metastatic disease, granul omatous infection, and granulomatosis with polyangiitis.
[2022-01-10 07:55] LABS: Glucose Point of Care 109 mg/dl (65-105)
== END 2022-01-10 07:22 | disposition home or self-care (01) ==
LOC: ANHIMG 07:27
PROVIDERS: PCP Internal Medicine; Visit Provider Internal Medicine
DX: R91.1 Solitary pulmonary nodule (principal)
CPT/HCPCS: 78815; A9552

== ENCOUNTER 2022-05-03 01:49 | Outpatient (CLI) | payer MEDICARE, SELFPAY ==
[2022-04-26 14:57] VITALS: BMI 25.1
--- NOTE | 2022-04-26 14:58 | PC.NURSE ---
Pre Radiology instructions Report to the Outpatient Waiting Room, entrance under the green pavilion located off [facility], at time __0900 on date _05/03/22 . Procedure Time: _1100 . One visitor will be allowed to accompany the patient into the hospital. The visitor will be instructed to remain with patient at all times or leave the building. We will allow the visitor to come back to the postoperative area when patient is ready. You and your visitor will be asked a series of questions to screen for COVID 19 for your protection. A mask is required within the hospital. Patients are to have no food or drink 6 hours prior to procedure time Driving will be restricted after the procedure, you must have a person to drive you home. Labs will be drawn in preop area and once reviewed, you will be taken to radiology area for procedure. When the procedure is completed, you will be taken to outpatient where you will be monitored for several hours. You may have one visitor in this area. Other than holding anti-coagulants, patient may take other medication(s) as scheduled. Prior to your appointment date patients are instructed to hold anti-coagulants after discussing with ordering provider to stop. If unable to discontinue anti-coagulants please notify radiologist. No aspirin or warfarin (Coumadin) for 7 days prior to the procedure. No clopidogrel (Plavix), ticagrelor (Brilinta), prasugrel (Effient) or dabigatran (Pradaxa) for 5 days prior to the procedure. No rivaroxaban (Xarelto), apixaban (Eliquis), dipyridamole (Aggrenox or Persantine) or cilostazol (Pletal) for 2 days prior to the procedure. Medications to discontinue per physician: ____ELIQUIS 2 DAYS PER PROCEDURE Date to take last dose: 04/30/22 Please leave all valuables, including medications, at home the day of procedure. The hospital will not accept responsibility for valuables. Wear comfortable, loose fitting clothing. Follow any additional instructions given to you from ordering provider. Telephone instructions given to __PATIENT and asked if any additional questions and then verbalized understanding. Patient advised to call scheduling provider office or registration scheduling [phone] if any additional questions.
[2022-05-03] VITALS (10 sets, daily range): BP systolic 125–149; BP diastolic 63–74; PULSE 53–65; RESP 14–16; TEMP 37; O2SAT 98–100
--- NOTE | ~2022-05-03 | XR_ITS ---
EXAMINATION: XR chest 1V portable DATE: 05/03/2022 12:57 INDICATION: Left lung nodule status post percutaneous biopsy. TECHNIQUE: A single frontal view of the chest was obtained. COMPARISON: PET/CT 01/10/2022 FINDINGS: Calcified pulmonary nodules and calcified hilar and mediastinal lymph nodes are consistent with old granulomatous disease. There are nodules in left lower lobe. No pleural effusion or pneumoth orax. The heart size is normal. IMPRESSION: 1. Pulmonary nodules in left lower lobe, which may be benign or malignant. Reviewed, dictated and finalized at location A.
--- NOTE | ~2022-05-03 | XR_ITS ---
EXAMINATION: XR chest 1V portable DATE: 05/03/2022 14:54 INDICATION: 3 hours post left lung percutaneous biopsy TECHNIQUE: frontal view of the chest was obtained. COMPARISON: Chest radiograph dated 05/03/2022 FINDINGS: Again seen are couple approximately 2 cm somewhat ill-defined nodules at the cardiophrenic angle at t he left lung base, one of which was the biopsied nodule. There are few scattered small calcified pulm onary nodules consistent with old granulomatous disease. No new airspace opacities, pulmonary edema, pleural effusion or pneumothorax. The cardiomediastinal silhouette is normal. IMPRESSION: 1. No pneumothorax or other acute cardiopulmonary disease post biopsy of a 2 cm nodule at the left jenny ng base. Reviewed, dictated and finalized at location A. IMPRESSION: 1. No pneumothorax or other acute cardiopulmonary disease post biopsy of a 2 cm nodule at the left lung base.
--- NOTE | ~2022-05-03 | CT_ITS ---
EXAMINATION: CT biopsy lung w/imaging DATE: 05/03/2022 12:09 INDICATION: Multiple lung nodules TECHNIQUE: The procedure including the risks and benefits was discussed with the patient. Risks discu ssed included infection, approximately 1/20 risk of symptomatic hemorrhage beyond mild hemoptysis, ap proximately 1/3 risk of pneumothorax, and approximately 1/10 risk of pneumothorax severe enough to wa rrant chest tube placement. The patient understood the risks and agreed to proceed. The patient was p laced prone. The skin overlying the posterior left hemithorax was prepped and draped in sterile fash ion. Anesthetic was administered with 1% lidocaine subcutaneously. A 19 gauge outer needle was adva nced under CT guidance to the lesion of interest. A 20 gauge core biopsy needle was then used to obta in 4 core biopsy specimens. The needle was removed and the entry site was cleaned and dressed. There were no immediate complications. The dose-length product was 155.41 mGy-cm. FINDINGS: CT images demonstrate the outer needle tip adjacent to a 2.2 x 2.1 cm nodule with lobular m argins at the medial basilar left lower lobe. IMPRESSION: 1. Successful CT-guided biopsy of a 2.2 x 2.1 cm left lower lobe nodule. Reviewed, dictated and finalized at location A.
--- NOTE | ~2022-05-03 | XR_ITS ---
EXAMINATION: XR chest 1V DATE: 05/03/2022 11:57 INDICATION: Status post percutaneous left lung biopsy TECHNIQUE: frontal and lateral views of the chest were obtained. COMPARISON: Chest radiograph dated 09/26/2021 FINDINGS: There are a couple nodular opacities at the medial left lung base including the biopsied nodule. A fe w scattered small calcified pulmonary nodules consistent with old granulomatous disease. No other air space opacities, pulmonary edema, pleural effusion or pneumothorax. The cardiomediastinal silhouette is normal. IMPRESSION: 1. No pneumothorax, pleural effusion or other acute cardiopulmonary disease post biopsy of a left low er lobe nodule. Reviewed, dictated and finalized at location A. IMPRESSION: 1. No pneumothorax, pleural effusion or other acute cardiopulmonary disease pos t biopsy of a left lower lobe nodule.
[2022-05-03 09:56] LABS: Mean Platelet Volume 10.5 fl (7.4-10.4); Platelet Count Result 278 k/mm3 (150-375)
[2022-05-03 10:06] LABS: Prothrombin Time 12.8 Seconds (11.1-14.7)
--- NOTE | 2022-05-03 15:26 | SUR.PHASEII ---
1515 DR. CORCORAN HERE TO SEE PATIENT.
== END 2022-05-03 15:27 | disposition home or self-care (01) ==
PROVIDERS: Radiology Diagnostic Radiology; PCP Internal Medicine; Visit Provider Internal Medicine Pulmonary Disease
PROC: BB24ZZZ Computerized Tomography (CT Scan) of Bilateral Lungs (ICD-10-PCS; CPT 32408; principal; 2022-05-03 11:00)
DX: R91.8 Other nonspecific abnormal finding of lung field (principal)
CPT/HCPCS: 32408; 36415; 71045; 85049; 85610; 88305; 88313

== ENCOUNTER 2024-10-07 20:17 | Emergency (ER) | payer MEDICARE, SELFPAY ==
[2024-10-07 20:25] VITALS: BP 98/53; PULSE 63; RESP 18; TEMP 36.6; O2SAT 99
== END 2024-10-07 21:00 | disposition left against medical advice (07) ==
PROVIDERS: PCP Internal Medicine
DX: R42 Dizziness and giddiness (principal)
CPT/HCPCS: 99199